=== PATIENT | female | born 1945 | race Caucasian/White ===

== ENCOUNTER 2018-05-14 17:13 | Emergency (ER) | payer BC, MEDICARE ==
[~2018-05-14] VITALS: Ht 165.1 cm; Wt 70.3 kg
[2018-05-14 17:26] VITALS: BP 200/111
[2018-05-14] MEDS: cloNIDine HCL 0.1 MG TAB PO ONE (17:31)
[2018-05-14] MEDS: CLINDAMYCIN 600 MG/4 ML VL IM ONE (20:39)
[2018-05-14] MEDS: KETOROLAC TROMETH 60MG/2ML VIAL IM ONE (20:39)
== END 2018-05-14 20:09 | disposition home or self-care (01) ==
LOC: ER 17:16
DX: K04.7 Periapical abscess without sinus (principal); J44.9 Chronic obstructive pulmonary disease, unspecified; E11.9 Type 2 diabetes mellitus without complications; I10 Essential (primary) hypertension; F17.210 Nicotine dependence, cigarettes, uncomplicated; I25.2 Old myocardial infarction; Z90.49 Acquired absence of other specified parts of digestive tract
CPT/HCPCS: 96372; 99283; J1885

== ENCOUNTER 2018-05-15 02:59 | Emergency (ER) | payer MEDICARE ==
[~2018-05-15] VITALS: Ht 165.1 cm; Wt 102.1 kg
[2018-05-15] MEDS: ACETAMINOPHEN 325 MG TAB PO ONE (03:55)
[2018-05-15 04:34] LABS: Hematocrit 50.2 % (36.0-46.0); Hemoglobin 17.3 g/dL (12.2-16.2); Mean Corpuscular Hemoglobin 33.9 pg (28.0-32.0); Mean Corpuscular Hgb Conc. 34.4 g/dL (32.0-36.0); Mean Corpuscular Volume 98.7 fL (80.0-100.0); Platelet Count (auto) 144 10^3/uL (140-450); Red Blood Cells 5.09 10^6/uL (4.0-5.20); Red Cell Distribution Width 13.2 % (11.8-14.3); White Blood Cell 10.5 10^3/uL (4.4-10.8)
[2018-05-15 04:48] LABS: Basophils % (manual) 0 (0.0-2.0); Blast Cells 0; Eosinophils % (manual) 0 (0-7); Metamyelocytes % 0; Myelocytes % 0; Promyelocytes % 0; Reactive Lymphocytes 0
[2018-05-15 04:49] LABS: Albumin 3.1 g/dL (3.4-5.0); Anion Gap 12 (5-15); Blood Urea Nitrogen 33 mg/dL (7-18); Calcium 8.7 mg/dL (8.5-10.1); Carbon Dioxide 18 mmol/L (21-32); Chloride 105 mmol/L (98-107); Magnesium 2.5 mg/dL (1.6-2.6); Potassium 4.2 mmol/L (3.5-5.1); Sodium 135 mmol/L (136-145)
[2018-05-15 04:51] LABS: GFR African American 44 mL/min; GFR Non-African American 37 mL/min; Glucose 440 mg/dL (74-106)
[2018-05-15 04:52] LABS: BUN/Creatinine Ratio 22.1
[2018-05-15 04:56] LABS: Alanine Aminotransferase 59 U/L (13-56); Alkaline Phosphatase 125 U/L (45-117); Aspartate Aminotransferase 43 U/L (15-37); Bilirubin, Total 0.9 mg/dL (0.2-1.0); Total Protein 7.9 g/dL (6.4-8.2)
[2018-05-15] MEDS: SODIUM CHLORIDE 0.9% 1,000 ML IV ONE ×2 (05:14→06:46)
[2018-05-15] MEDS: InsuLIN REG 1unit/0.01ml Soln (100units/ml) IV ONE (05:15)
[2018-05-15 06:42] LABS: Band Neutrophils % (manual) 19
[2018-05-15 06:44] LABS: Lymphocytes % (manual) 7 (10.0-50.0); Monocytes % (manual) 1 (0-12)
[2018-05-15 06:45] VITALS: BP 118/60
== END 2018-05-15 06:47 | disposition home or self-care (01) ==
LOC: EDBD 02:59 → ER 03:03
DX: E11.65 Type 2 diabetes mellitus with hyperglycemia (principal); J44.9 Chronic obstructive pulmonary disease, unspecified; I10 Essential (primary) hypertension; I25.2 Old myocardial infarction; Z90.49 Acquired absence of other specified parts of digestive tract; Z88.0 Allergy status to penicillin; Z88.5 Allergy status to narcotic agent
CPT/HCPCS: 36415; 80053; 82962; 83735; 84484; 85007; 85027; 87040; 93005; 96361; 96374; 99284; J1815; J7030

== ENCOUNTER 2019-09-19 03:21 | Emergency (ER) | payer MEDICARE, OTHER ==
[~2019-09-19] VITALS: Ht 167.6 cm; Wt 70.3 kg
[2019-09-19 04:32] LABS: Basophils # (auto) 0.1 10 ^3/uL (0-0.2); Basophils % (auto) 0.5 % (0.0-2.0); Eosinophils # (auto) 0.3 10 ^3/uL (0-0.8); Eosinophils % (auto) 2.5 % (0.0-7.0); Hematocrit 48.2 % (36.0-46.0); Hemoglobin 16.2 g/dL (12.2-16.2); Lymphocytes # (auto) 2.4 10 ^3/uL (0.4-5.4); Lymphocytes % (auto) 17.1 % (10.0-50.0); Mean Corpuscular Hemoglobin 33.8 pg (28.0-32.0); Mean Corpuscular Hgb Conc. 33.6 g/dL (32.0-36.0); Mean Corpuscular Volume 100.6 fL (80.0-100.0); Monocytes # (auto) 0.8 10 ^3/uL (0-1.3); Monocytes % (auto) 5.7 % (0.0-12.0); Neutrophils # (auto) 10.2 10 ^3/uL (1.6-8.6); Neutrophils % (auto) 74.2 % (37.0-80.0); Nucleated Red Blood Cells % 0.1 %; Platelet Count (auto) 209 10^3/uL (140-450); Red Blood Cells 4.79 10^6/uL (4.0-5.20); Red Cell Distribution Width 13.5 % (11.8-14.3); White Blood Cell 13.8 10^3/uL (4.4-10.8)
[2019-09-19 04:42] LABS: INR 1.13 (0.9-1.15); Partial Thromboplastin Time 25.5 sec (23.64-32.05)
[2019-09-19 04:44] LABS: Alanine Aminotransferase 43 U/L (13-56); Albumin 2.9 g/dL (3.4-5.0); Anion Gap 10 (5-15); Aspartate Aminotransferase 38 U/L (15-37); BUN/Creatinine Ratio 25.7; Blood Urea Nitrogen 38 mg/dL (7-18); Calcium 8.4 mg/dL (8.5-10.1); Carbon Dioxide 22 mmol/L (21-32); Chloride 104 mmol/L (98-107); GFR African American 45 mL/min; GFR Non-African American 37 mL/min; Glucose 210 mg/dL (74-106); Potassium 4.2 mmol/L (3.5-5.1); Sodium 136 mmol/L (136-145)
[2019-09-19 04:49] LABS: Alkaline Phosphatase 84 U/L (45-117); Bilirubin, Total 0.5 mg/dL (0.2-1.0); Total Protein 7.5 g/dL (6.4-8.2)
[2019-09-19 06:00] VITALS: BP 117/67
[2019-09-19 08:25] LABS: Urine Bacteria NONE SEEN /hpf (None Seen); Urine Blood Negative /uL (Negative); Urine Hyaline Cast FEW /lpf (0 - 2); Urine WBC 28 /hpf (0 - 5)
[2019-09-19] MEDS ORDERED: cefTRIAXone 1GM/50ML D5W 50 ML IV ONE ×2 (12:15→12:30)
[2019-09-19] MEDS ORDERED: AZITHROMYCIN 500MG/ 250ML 250 ML IV ONE (12:30)
== END 2019-09-19 15:37 | disposition home or self-care (01) ==
LOC: EDBD 03:21 → ER 03:21
DX: E11.21 Type 2 diabetes mellitus with diabetic nephropathy (principal); E44.0 Moderate protein-calorie malnutrition; D75.89 Other specified diseases of blood and blood-forming organs; N39.0 Urinary tract infection, site not specified; J44.9 Chronic obstructive pulmonary disease, unspecified; M10.9 Gout, unspecified; E78.5 Hyperlipidemia, unspecified; I10 Essential (primary) hypertension; I25.2 Old myocardial infarction; F17.210 Nicotine dependence, cigarettes, uncomplicated; Z20.828 Contact with and (suspected) exposure to other viral communicable diseases
CPT/HCPCS: 36415; 71045; 80053; 81001; 82728; 83605; 83880; 84484; 85025; 85610; 85730; 87040; 87070; 87635; 87804; 87880; 93005; 96365; 96366; 96367; 99001; 99284; J0456; J0696

== ENCOUNTER 2021-06-22 13:36 | Inpatient (IN) | payer BC, OTHER ==
[~2021-06-22] VITALS: Ht 165.1 cm; Wt 57.5 kg
[2021-06-22] MEDS ORDERED: HYDROmorphone HCL 2 MG/ML VL IV ONE (15:30)
[2021-06-22] MEDS ORDERED: SODIUM CHLORIDE 0.9% 1,000 ML IV ONE (15:30)
[2021-06-22] MEDS ORDERED: ONDANSETRON ODT 4 MG TAB PO ONE (15:30)
[2021-06-22 16:36] LABS: Basophils # (auto) 0 10 ^3/uL (0-0.2); Basophils % (auto) 0.4 % (0.0-2.0); Eosinophils # (auto) 0 10 ^3/uL (0-0.8); Hematocrit 43.3 % (36.0-46.0); Hemoglobin 14.8 g/dL (12.2-16.2); Lymphocytes # (auto) 0.7 10 ^3/uL (0.4-5.4); Lymphocytes % (auto) 7.2 % (10.0-50.0); Mean Corpuscular Hemoglobin 32.4 pg (28.0-32.0); Mean Corpuscular Hgb Conc. 34.2 g/dL (32.0-36.0); Mean Corpuscular Volume 94.6 fL (80.0-100.0); Monocytes # (auto) 0.5 10 ^3/uL (0-1.3); Monocytes % (auto) 5.3 % (0.0-12.0); Neutrophils # (auto) 8.8 10 ^3/uL (1.6-8.6); Neutrophils % (auto) 87.1 % (37.0-80.0); Nucleated Red Blood Cells % 0.1 %; Red Blood Cells 4.57 10^6/uL (4.0-5.20); Red Cell Distribution Width 13.5 % (11.8-14.3); White Blood Cell 10.1 10^3/uL (4.4-10.8)
[2021-06-22 16:53] LABS: Albumin 2.7 g/dL (3.4-5.0); Calcium 8.2 mg/dL (8.5-10.1); Magnesium 2.1 mg/dL (1.6-2.6); Potassium 3.7 mmol/L (3.5-5.1)
[2021-06-22 17:00] LABS: BUN/Creatinine Ratio 16.2; Bilirubin, Total 0.5 mg/dL (0.2-1.0); Total Protein 7.4 g/dL (6.4-8.2)
[2021-06-22] MEDS ORDERED: ACETAMINOPHEN 500 MG TAB PO PRN (20:45)
[2021-06-22] MEDS ORDERED: DOCUSATE SOD 100 MG CAP PO PRN (20:45)
[2021-06-22] MEDS ORDERED: DEXTROSE (50%) 50ML SYRG IV PRN (20:45)
[2021-06-22] MEDS ORDERED: HYDROmorphone HCL 2 MG/ML VL IV PRN (20:45)
[2021-06-22] MEDS ORDERED: ONDANSETRON HCL 4 MG/2 ML VIAL IV PRN (20:45)
[2021-06-22] MEDS ORDERED: NITROGLYCERIN 0.4 MG SL TAB SL PRN (22:00)
[2021-06-22] MEDS ORDERED: MORPHINE SULFATE INJECTION 2 MG/ML SYRG IV PRN (22:00)
[2021-06-22] MEDS: BUDESONIDE (INHALATION) 180 MCG IH IN SCH (22:24)
[2021-06-22] MEDS: ALBUTEROL SULF HFA 90MCG INH 200DOSE IN PRN (22:24)
[2021-06-22 22:52] LABS: Magnesium 2.2 mg/dL (1.6-2.6)
[2021-06-22] MEDS: FAMOTIDINE (10MG/ML) 2ML VL IV SCH (23:20)
[2021-06-22] MEDS: ATORVASTATIN 20 MG TAB PO SCH (23:30)
[2021-06-22] MEDS: DOXYCYCLINE 100MG/250ML 250 ML IV SCH (23:30)
[2021-06-22] MEDS: HEPARIN SODIUM (PORCINE) 5000 UNITS/ML 1ML VIAL SC SCH (23:30)
[2021-06-23] MEDS: SODIUM CHLORIDE 0.9% 1,000 ML IV SCH ×2 (03:50→14:31)
[2021-06-23] MEDS ORDERED: GABA300C10 PO (04:13)
[2021-06-23] MEDS ORDERED: LISI-716 PO (04:13)
[2021-06-23] MEDS ORDERED: OMEP-335 PO (04:13)
[2021-06-23] MEDS ORDERED: GLIP5TAB12 PO (04:13)
[2021-06-23] MEDS ORDERED: METF-372 PO (04:13)
[2021-06-23] MEDS ORDERED: DULA0.5I SC (04:13)
[2021-06-23] MEDS ORDERED: ATOR40TA52 PO (04:13)
[2021-06-23] MEDS ORDERED: HYDR25TA4 PO (04:13)
[2021-06-23] MEDS: hydrALAZINE HCL 20 MG/ML VL IV PRN (04:57)
[2021-06-23 05:00] VITALS: BP 150/69
[2021-06-23] MEDS: InsuLIN REG 1unit/0.01ml Soln (100units/ml) SC SCH ×5 (06:00→22:58)
[2021-06-23] MEDS: ACCU-CHEK COMFORT CURVE STRIP VI SCH ×5 (06:34→22:59)
[2021-06-23] MEDS: BUDESONIDE (INHALATION) 180 MCG IH IN SCH ×2 (08:32→21:00)
[2021-06-23] MEDS: ALBUTEROL SULF HFA 90MCG INH 200DOSE IN PRN (08:32)
[2021-06-23 09:00] VITALS: BP 147/63
[2021-06-23] MEDS: DOXYCYCLINE 100MG/250ML 250 ML IV SCH ×2 (09:48→22:19)
[2021-06-23] MEDS: FAMOTIDINE (10MG/ML) 2ML VL IV SCH ×2 (09:51→22:19)
[2021-06-23] MEDS: DexAMETHasone SOD PHOS 10MG/1ML VIAL INJ IV SCH (09:51)
[2021-06-23] MEDS: CHOLECALCIFEROL (VITD3) 2,000 UNIT CAP/TAB PO SCH (09:51)
[2021-06-23] MEDS: ASCORBIC ACID 1,000 MG TAB PO SCH (09:52)
[2021-06-23] MEDS: ZINC SULFATE 220mg CAP or TAB PO SCH (09:52)
[2021-06-23] MEDS: MULTIPLE VITAMIN TAB PO SCH (09:52)
[2021-06-23] MEDS: ASPirin 81 mg TAB PO SCH (09:52)
[2021-06-23] MEDS: HEPARIN SODIUM (PORCINE) 5000 UNITS/ML 1ML VIAL SC SCH ×2 (09:58→22:20)
[2021-06-23] MEDS ORDERED: LISINOPRIL 10 MG TAB PO SCH (10:00)
[2021-06-23 11:47] LABS: Basophils # (auto) 0 10 ^3/uL (0-0.2); Basophils % (auto) 0.2 % (0.0-2.0); Eosinophils # (auto) 0 10 ^3/uL (0-0.8); Hematocrit 39.1 % (36.0-46.0); Hemoglobin 13.4 g/dL (12.2-16.2); Lymphocytes # (auto) 0.4 10 ^3/uL (0.4-5.4); Lymphocytes % (auto) 5.5 % (10.0-50.0); Mean Corpuscular Hemoglobin 32.4 pg (28.0-32.0); Mean Corpuscular Hgb Conc. 34.2 g/dL (32.0-36.0); Mean Corpuscular Volume 94.5 fL (80.0-100.0); Monocytes # (auto) 0.3 10 ^3/uL (0-1.3); Monocytes % (auto) 3.7 % (0.0-12.0); Neutrophils # (auto) 7.2 10 ^3/uL (1.6-8.6); Neutrophils % (auto) 90.6 % (37.0-80.0); Nucleated Red Blood Cells % 0.1 %; Red Blood Cells 4.14 10^6/uL (4.0-5.20); Red Cell Distribution Width 13.4 % (11.8-14.3)
[2021-06-23 11:56] LABS: Potassium 3.9 mmol/L (3.5-5.1)
[2021-06-23 12:21] LABS: Albumin 2.1 g/dL (3.4-5.0); Bilirubin, Total 0.4 mg/dL (0.2-1.0); Calcium 7.6 mg/dL (8.5-10.1); Total Protein 6.5 g/dL (6.4-8.2)
[2021-06-23 13:00] VITALS: BP 105/34
[2021-06-23 17:00] VITALS: BP 112/64
[2021-06-23] MEDS: ACETAMINOPHEN 325 MG TAB PO PRN (17:48)
[2021-06-23] MEDS: guaiFENesin-DM 100/10mg/5ml SYR PO PRN (17:49)
[2021-06-23 22:00] VITALS: BP 137/54
[2021-06-23] MEDS: ATORVASTATIN 20 MG TAB PO SCH (22:19)
[2021-06-24] MEDS: ALBUTEROL SULF HFA 90MCG INH 200DOSE IN PRN ×2 (00:46→11:59)
[2021-06-24 05:00] VITALS: BP 128/61
[2021-06-24] MEDS: InsuLIN REG 1unit/0.01ml Soln (100units/ml) SC SCH ×4 (05:45→23:07)
[2021-06-24] MEDS: ACCU-CHEK COMFORT CURVE STRIP VI SCH ×4 (05:45→23:07)
[2021-06-24] MEDS: SODIUM CHLORIDE 0.9% 1,000 ML IV SCH (06:06)
[2021-06-24] MEDS: BUDESONIDE (INHALATION) 180 MCG IH IN SCH ×2 (08:24→22:00)
[2021-06-24 08:42] VITALS: BP 152/64
[2021-06-24] MEDS: DOXYCYCLINE 100MG/250ML 250 ML IV SCH ×2 (09:29→22:17)
[2021-06-24] MEDS: ASPirin 81 mg TAB PO SCH (09:29)
[2021-06-24] MEDS: DexAMETHasone SOD PHOS 10MG/1ML VIAL INJ IV SCH (09:29)
[2021-06-24] MEDS: ZINC SULFATE 220mg CAP or TAB PO SCH (09:29)
[2021-06-24] MEDS: FAMOTIDINE (10MG/ML) 2ML VL IV SCH ×2 (09:29→22:17)
[2021-06-24] MEDS: CHOLECALCIFEROL (VITD3) 2,000 UNIT CAP/TAB PO SCH (09:30)
[2021-06-24] MEDS: MULTIPLE VITAMIN TAB PO SCH (09:30)
[2021-06-24] MEDS: HEPARIN SODIUM (PORCINE) 5000 UNITS/ML 1ML VIAL SC SCH ×2 (09:30→22:18)
[2021-06-24] MEDS: ASCORBIC ACID 1,000 MG TAB PO SCH (09:30)
[2021-06-24] MEDS: hydrALAZINE HCL 20 MG/ML VL IV PRN ×2 (09:31→17:43)
[2021-06-24] MEDS: guaiFENesin-DM 100/10mg/5ml SYR PO PRN ×2 (10:13→23:00)
[2021-06-24 12:44] LABS: Basophils # (auto) 0 10 ^3/uL (0-0.2); Basophils % (auto) 0.1 % (0.0-2.0); Eosinophils # (auto) 0 10 ^3/uL (0-0.8); Hematocrit 42.6 % (36.0-46.0); Hemoglobin 13.9 g/dL (12.2-16.2); Lymphocytes # (auto) 0.6 10 ^3/uL (0.4-5.4); Mean Corpuscular Hemoglobin 31.4 pg (28.0-32.0); Mean Corpuscular Hgb Conc. 32.7 g/dL (32.0-36.0); Monocytes # (auto) 0.5 10 ^3/uL (0-1.3); Monocytes % (auto) 2.7 % (0.0-12.0); Neutrophils # (auto) 17.2 10 ^3/uL (1.6-8.6); Neutrophils % (auto) 94.2 % (37.0-80.0); Nucleated Red Blood Cells % 0.1 %; Red Blood Cells 4.44 10^6/uL (4.0-5.20); Red Cell Distribution Width 13.5 % (11.8-14.3); White Blood Cell 18.2 10^3/uL (4.4-10.8)
[2021-06-24 12:59] LABS: Potassium 4.3 mmol/L (3.5-5.1)
[2021-06-24 13:00] VITALS: BP 144/61
[2021-06-24 13:11] LABS: Albumin 2.1 g/dL (3.4-5.0); BUN/Creatinine Ratio 29.1; Bilirubin, Total 0.4 mg/dL (0.2-1.0); CRP High Sensitivity 5.99 mg/dL (< 0.3); Total Protein 6.7 g/dL (6.4-8.2)
[2021-06-24 17:00] VITALS: BP 155/68
[2021-06-24 22:00] VITALS: BP 141/60
[2021-06-24] MEDS: ATORVASTATIN 20 MG TAB PO SCH (22:18)
[2021-06-25 05:00] VITALS: BP 174/76
[2021-06-25] MEDS: ACCU-CHEK COMFORT CURVE STRIP VI SCH ×3 (06:12→17:11)
[2021-06-25] MEDS: InsuLIN REG 1unit/0.01ml Soln (100units/ml) SC SCH ×4 (06:13→23:33)
[2021-06-25] MEDS: hydrALAZINE HCL 20 MG/ML VL IV PRN (06:14)
[2021-06-25] MEDS: ASPirin 81 mg TAB PO SCH (08:47)
[2021-06-25] MEDS: DexAMETHasone SOD PHOS 10MG/1ML VIAL INJ IV SCH (08:47)
[2021-06-25] MEDS: ZINC SULFATE 220mg CAP or TAB PO SCH (08:47)
[2021-06-25] MEDS: DOXYCYCLINE 100MG/250ML 250 ML IV SCH ×2 (08:47→21:53)
[2021-06-25] MEDS: FAMOTIDINE (10MG/ML) 2ML VL IV SCH ×2 (08:47→21:53)
[2021-06-25] MEDS: MULTIPLE VITAMIN TAB PO SCH (08:48)
[2021-06-25] MEDS: ASCORBIC ACID 1,000 MG TAB PO SCH (08:48)
[2021-06-25] MEDS: CHOLECALCIFEROL (VITD3) 2,000 UNIT CAP/TAB PO SCH (08:48)
[2021-06-25] MEDS: HEPARIN SODIUM (PORCINE) 5000 UNITS/ML 1ML VIAL SC SCH ×2 (08:48→21:53)
[2021-06-25 09:00] VITALS: BP 169/72
[2021-06-25] MEDS: BUDESONIDE (INHALATION) 180 MCG IH IN SCH ×2 (09:28→21:57)
[2021-06-25 12:55] VITALS: BP 166/58
[2021-06-25] MEDS: amLODIPine BESYLATE 5 MG TAB PO SCH (13:25)
[2021-06-25 14:35] VITALS: BP 140/65
[2021-06-25 14:56] LABS: Basophils # (auto) 0 10 ^3/uL (0-0.2); Basophils % (auto) 0.1 % (0.0-2.0); Eosinophils # (auto) 0 10 ^3/uL (0-0.8); Hemoglobin 14.6 g/dL (12.2-16.2); Lymphocytes # (auto) 0.3 10 ^3/uL (0.4-5.4); Lymphocytes % (auto) 2.1 % (10.0-50.0); Mean Corpuscular Hemoglobin 31.9 pg (28.0-32.0); Mean Corpuscular Volume 93.8 fL (80.0-100.0); Monocytes # (auto) 0.5 10 ^3/uL (0-1.3); Monocytes % (auto) 3.4 % (0.0-12.0); Neutrophils # (auto) 13.3 10 ^3/uL (1.6-8.6); Neutrophils % (auto) 94.4 % (37.0-80.0); Red Blood Cells 4.58 10^6/uL (4.0-5.20); Red Cell Distribution Width 13.4 % (11.8-14.3); White Blood Cell 14.1 10^3/uL (4.4-10.8)
[2021-06-25 15:06] LABS: Albumin 2.1 g/dL (3.4-5.0); Calcium 8.3 mg/dL (8.5-10.1); Potassium 4.7 mmol/L (3.5-5.1)
[2021-06-25 15:10] LABS: BUN/Creatinine Ratio 29.5; Bilirubin, Total 0.4 mg/dL (0.2-1.0); Total Protein 6.8 g/dL (6.4-8.2)
[2021-06-25] MEDS: ALBUTEROL SULF HFA 90MCG INH 200DOSE IN PRN (15:18)
[2021-06-25 16:50] VITALS: BP 140/65
[2021-06-25] MEDS: guaiFENesin-DM 100/10mg/5ml SYR PO PRN (21:04)
[2021-06-25] MEDS: ATORVASTATIN 20 MG TAB PO SCH (21:53)
[2021-06-25 22:00] VITALS: BP 144/85
[2021-06-26 05:00] VITALS: BP 155/73
[2021-06-26] MEDS: ACCU-CHEK COMFORT CURVE STRIP VI SCH ×4 (06:00→18:00)
[2021-06-26] MEDS: InsuLIN REG 1unit/0.01ml Soln (100units/ml) SC SCH ×3 (06:00→17:41)
[2021-06-26 08:27] LABS: Basophils # (auto) 0 10 ^3/uL (0-0.2); Basophils % (auto) 0.1 % (0.0-2.0); Eosinophils # (auto) 0 10 ^3/uL (0-0.8); Hematocrit 44.9 % (36.0-46.0); Hemoglobin 15.1 g/dL (12.2-16.2); Lymphocytes # (auto) 0.5 10 ^3/uL (0.4-5.4); Lymphocytes % (auto) 4.4 % (10.0-50.0); Mean Corpuscular Hgb Conc. 33.6 g/dL (32.0-36.0); Mean Corpuscular Volume 95.2 fL (80.0-100.0); Monocytes # (auto) 0.6 10 ^3/uL (0-1.3); Neutrophils # (auto) 11.3 10 ^3/uL (1.6-8.6); Neutrophils % (auto) 90.5 % (37.0-80.0); Nucleated Red Blood Cells % 0.1 %; Red Blood Cells 4.72 10^6/uL (4.0-5.20); Red Cell Distribution Width 13.7 % (11.8-14.3); White Blood Cell 12.5 10^3/uL (4.4-10.8)
[2021-06-26 08:30] VITALS: BP 161/82
[2021-06-26 08:31] LABS: Potassium 4.5 mmol/L (3.5-5.1)
[2021-06-26 09:13] LABS: Albumin 2.2 g/dL (3.4-5.0); BUN/Creatinine Ratio 33.6
[2021-06-26 09:15] LABS: Bilirubin, Total 0.6 mg/dL (0.2-1.0); Magnesium 2.1 mg/dL (1.6-2.6); Total Protein 7.2 g/dL (6.4-8.2)
[2021-06-26] MEDS: DexAMETHasone SOD PHOS 10MG/1ML VIAL INJ IV SCH (09:33)
[2021-06-26] MEDS: DOXYCYCLINE 100MG/250ML 250 ML IV SCH ×2 (09:34→21:20)
[2021-06-26] MEDS: FAMOTIDINE (10MG/ML) 2ML VL IV SCH ×2 (09:34→21:20)
[2021-06-26] MEDS: ASPirin 81 mg TAB PO SCH (09:34)
[2021-06-26] MEDS: ZINC SULFATE 220mg CAP or TAB PO SCH (09:35)
[2021-06-26] MEDS: MULTIPLE VITAMIN TAB PO SCH (09:35)
[2021-06-26] MEDS: ASCORBIC ACID 1,000 MG TAB PO SCH (09:36)
[2021-06-26] MEDS: amLODIPine BESYLATE 5 MG TAB PO SCH (09:36)
[2021-06-26] MEDS: HEPARIN SODIUM (PORCINE) 5000 UNITS/ML 1ML VIAL SC SCH ×2 (09:37→21:19)
[2021-06-26] MEDS: CHOLECALCIFEROL (VITD3) 2,000 UNIT CAP/TAB PO SCH (09:37)
[2021-06-26] MEDS: BUDESONIDE (INHALATION) 180 MCG IH IN SCH ×2 (10:00→19:33)
[2021-06-26] MEDS: ALBUTEROL SULF HFA 90MCG INH 200DOSE IN PRN ×2 (11:00→21:06)
[2021-06-26] MEDS ORDERED: REMDESIVIR PER PHARMACY 0 ML IV SCH (11:45)
[2021-06-26 11:49] LABS: Hepatitis B Surface Antibody Negative (Negative)
[2021-06-26 12:30] VITALS: BP 150/86
[2021-06-26 13:02] LABS: Hepatitis A Total Antibody Negative (Negative)
[2021-06-26 14:21] LABS: Hepatitis C Antibody Negative (Negative)
[2021-06-26] MEDS ORDERED: REMDESIVIR 200 MG in NS 210ml LOADING DOSE ADULT IV ONE (16:00)
[2021-06-26 17:29] VITALS: BP 122/69
[2021-06-26] MEDS: ATORVASTATIN 20 MG TAB PO SCH (21:19)
[2021-06-26 22:00] VITALS: BP 138/67
[2021-06-27] MEDS: ACCU-CHEK COMFORT CURVE STRIP VI SCH ×5 (00:04→23:40)
[2021-06-27] MEDS: InsuLIN REG 1unit/0.01ml Soln (100units/ml) SC SCH ×5 (00:06→23:40)
[2021-06-27 05:10] VITALS: BP 138/72
[2021-06-27] MEDS: BUDESONIDE (INHALATION) 180 MCG IH IN SCH ×2 (05:54→19:28)
[2021-06-27] MEDS: ALBUTEROL SULF HFA 90MCG INH 200DOSE IN PRN ×2 (05:54→19:28)
[2021-06-27 07:39] LABS: Potassium 4.6 mmol/L (3.5-5.1)
[2021-06-27 08:05] LABS: Albumin 2.1 g/dL (3.4-5.0); BUN/Creatinine Ratio 39.8; Bilirubin, Total 0.5 mg/dL (0.2-1.0); Calcium 8.4 mg/dL (8.5-10.1); Total Protein 6.7 g/dL (6.4-8.2)
[2021-06-27 09:08] VITALS: BP 180/82
[2021-06-27] MEDS: DexAMETHasone SOD PHOS 10MG/1ML VIAL INJ IV SCH (09:12)
[2021-06-27] MEDS: DOXYCYCLINE 100MG/250ML 250 ML IV SCH (09:12)
[2021-06-27] MEDS: ASPirin 81 mg TAB PO SCH (09:12)
[2021-06-27] MEDS: FAMOTIDINE (10MG/ML) 2ML VL IV SCH ×2 (09:12→21:42)
[2021-06-27] MEDS: MULTIPLE VITAMIN TAB PO SCH (09:13)
[2021-06-27] MEDS: ASCORBIC ACID 1,000 MG TAB PO SCH (09:13)
[2021-06-27] MEDS: ZINC SULFATE 220mg CAP or TAB PO SCH (09:13)
[2021-06-27] MEDS: CHOLECALCIFEROL (VITD3) 2,000 UNIT CAP/TAB PO SCH (09:14)
[2021-06-27] MEDS: HEPARIN SODIUM (PORCINE) 5000 UNITS/ML 1ML VIAL SC SCH ×2 (09:14→21:43)
[2021-06-27] MEDS ORDERED: hydrALAZINE HCL 20 MG/ML VL ONE (09:22)
[2021-06-27] MEDS: hydrALAZINE HCL 20 MG/ML VL IV PRN (09:24)
[2021-06-27] MEDS: amLODIPine BESYLATE 5 MG TAB PO SCH (09:25)
[2021-06-27 12:31] VITALS: BP 155/60
[2021-06-27] MEDS: REMDESIVIR 100mg 100 MG in SODIUM CHL 0.9% 230 ML IV SCH (16:01)
[2021-06-27 16:35] VITALS: BP 163/70
[2021-06-27] MEDS: ATORVASTATIN 20 MG TAB PO SCH (21:42)
[2021-06-27 22:00] VITALS: BP 151/71
[2021-06-28] VITALS (7 sets, daily range): BP systolic 146–172; BP diastolic 72–89
[2021-06-28] MEDS: InsuLIN REG 1unit/0.01ml Soln (100units/ml) SC SCH ×4 (05:27→23:56)
[2021-06-28] MEDS: ACCU-CHEK COMFORT CURVE STRIP VI SCH ×3 (05:27→18:09)
[2021-06-28 06:39] LABS: Potassium 4.3 mmol/L (3.5-5.1)
[2021-06-28 06:48] LABS: Albumin 2.3 g/dL (3.4-5.0); BUN/Creatinine Ratio 42.3; Calcium 8.8 mg/dL (8.5-10.1)
[2021-06-28 06:51] LABS: Bilirubin, Total 0.6 mg/dL (0.2-1.0); Total Protein 6.6 g/dL (6.4-8.2)
[2021-06-28] MEDS: ALBUTEROL SULF HFA 90MCG INH 200DOSE IN PRN ×2 (07:19→22:10)
[2021-06-28] MEDS: BUDESONIDE (INHALATION) 180 MCG IH IN SCH ×2 (07:19→22:10)
[2021-06-28] MEDS: ASCORBIC ACID 1,000 MG TAB PO SCH (10:20)
[2021-06-28] MEDS: ZINC SULFATE 220mg CAP or TAB PO SCH (10:20)
[2021-06-28] MEDS: DexAMETHasone SOD PHOS 10MG/1ML VIAL INJ IV SCH (10:20)
[2021-06-28] MEDS: MULTIPLE VITAMIN TAB PO SCH (10:20)
[2021-06-28] MEDS: FAMOTIDINE (10MG/ML) 2ML VL IV SCH ×2 (10:20→23:15)
[2021-06-28] MEDS: amLODIPine BESYLATE 5 MG TAB PO SCH (10:21)
[2021-06-28] MEDS: CHOLECALCIFEROL (VITD3) 2,000 UNIT CAP/TAB PO SCH (10:21)
[2021-06-28] MEDS: ASPirin 81 mg TAB PO SCH (10:27)
[2021-06-28] MEDS: HEPARIN SODIUM (PORCINE) 5000 UNITS/ML 1ML VIAL SC SCH ×2 (10:35→23:14)
[2021-06-28] MEDS: ACETAMINOPHEN 325 MG TAB PO PRN (11:53)
[2021-06-28] MEDS: D5W 5% 1,000 ML IV SCH ×2 (11:53→23:14)
[2021-06-28] MEDS: REMDESIVIR 100mg 100 MG in SODIUM CHL 0.9% 230 ML IV SCH (15:57)
[2021-06-28] MEDS: ALPRAZolam 0.5 MG TAB PO PRN (15:58)
[2021-06-28 21:10] LABS: Urine Amorphous Crystal FEW /hpf (None Seen); Urine Bacteria FEW /hpf (None Seen); Urine Blood Negative /uL (Negative); Urine Specific Gravity 1.013 (1.001-1.035); Urine WBC 1 /hpf (0 - 5)
[2021-06-28] MEDS: ATORVASTATIN 20 MG TAB PO SCH (23:14)
[2021-06-29] MEDS: ALPRAZolam 0.5 MG TAB PO PRN
[2021-06-29 05:00] VITALS: BP 170/81
[2021-06-29] MEDS: ACCU-CHEK COMFORT CURVE STRIP VI SCH ×5 (05:26→23:27)
[2021-06-29] MEDS: InsuLIN REG 1unit/0.01ml Soln (100units/ml) SC SCH ×4 (05:27→23:25)
[2021-06-29] MEDS: BUDESONIDE (INHALATION) 180 MCG IH IN SCH ×2 (05:56→19:41)
[2021-06-29] MEDS: ALBUTEROL SULF HFA 90MCG INH 200DOSE IN PRN ×2 (05:56→21:19)
[2021-06-29 07:47] LABS: Albumin 2.4 g/dL (3.4-5.0); Bilirubin, Total 0.7 mg/dL (0.2-1.0); Calcium 8.9 mg/dL (8.5-10.1); Total Protein 7.1 g/dL (6.4-8.2)
[2021-06-29 08:00] VITALS: BP 170/83
[2021-06-29 08:10] VITALS: BP 177/77
[2021-06-29] MEDS: D5W 5% 1,000 ML IV SCH ×2 (09:42→21:46)
[2021-06-29] MEDS: DexAMETHasone SOD PHOS 10MG/1ML VIAL INJ IV SCH (09:43)
[2021-06-29] MEDS: ZINC SULFATE 220mg CAP or TAB PO SCH (09:44)
[2021-06-29] MEDS: ASPirin 81 mg TAB PO SCH (09:44)
[2021-06-29] MEDS: FAMOTIDINE (10MG/ML) 2ML VL IV SCH ×2 (09:44→21:21)
[2021-06-29] MEDS: amLODIPine BESYLATE 5 MG TAB PO SCH (09:45)
[2021-06-29] MEDS: MULTIPLE VITAMIN TAB PO SCH (09:45)
[2021-06-29] MEDS: CHOLECALCIFEROL (VITD3) 2,000 UNIT CAP/TAB PO SCH (09:46)
[2021-06-29] MEDS: ASCORBIC ACID 1,000 MG TAB PO SCH (09:46)
[2021-06-29] MEDS: HEPARIN SODIUM (PORCINE) 5000 UNITS/ML 1ML VIAL SC SCH ×2 (09:48→21:45)
[2021-06-29] MEDS: hydrALAZINE HCL 20 MG/ML VL IV PRN (11:13)
[2021-06-29 13:20] VITALS: BP 177/80
[2021-06-29] MEDS: REMDESIVIR 100mg 100 MG in SODIUM CHL 0.9% 230 ML IV SCH (15:35)
[2021-06-29] MEDS: cefTRIAXone 1GM/50ML D5W 50 ML IV SCH (15:49)
[2021-06-29] MEDS: METOPROLOL TARTRATE 25 MG TAB PO SCH ×2 (15:52→21:44)
[2021-06-29] MEDS: ATORVASTATIN 20 MG TAB PO SCH (21:22)
[2021-06-29 22:00] VITALS: BP 153/73
[2021-06-30 05:00] VITALS: BP 148/80
[2021-06-30] MEDS: D5W 5% 1,000 ML IV SCH ×2 (05:45→13:20)
[2021-06-30] MEDS: InsuLIN REG 1unit/0.01ml Soln (100units/ml) SC SCH ×4 (05:53→23:21)
[2021-06-30] MEDS: ACCU-CHEK COMFORT CURVE STRIP VI SCH ×4 (05:53→23:21)
[2021-06-30] MEDS: BUDESONIDE (INHALATION) 180 MCG IH IN SCH ×2 (07:02→21:53)
[2021-06-30] MEDS: ALBUTEROL SULF HFA 90MCG INH 200DOSE IN PRN ×2 (07:02→21:53)
[2021-06-30 07:26] LABS: Alanine Aminotransferase 73 U/L (13-56); Albumin 2.2 g/dL (3.4-5.0); Anion Gap 7 (5-15); Aspartate Aminotransferase 75 U/L (15-37); BUN/Creatinine Ratio 40.5; Blood Urea Nitrogen 47 mg/dL (7-18); Calcium 8.4 mg/dL (8.5-10.1); Carbon Dioxide 19 mmol/L (21-32); Chloride 125 mmol/L (98-107); GFR African American 59 mL/min; GFR Non-African American 49 mL/min; Glucose 171 mg/dL (74-106); Magnesium 2.6 mg/dL (1.6-2.6); Potassium 4.6 mmol/L (3.5-5.1); Sodium 151 mmol/L (136-145)
[2021-06-30 07:29] LABS: Alkaline Phosphatase 78 U/L (45-117); Bilirubin, Total 0.8 mg/dL (0.2-1.0); Total Protein 7.1 g/dL (6.4-8.2)
[2021-06-30 09:00] VITALS: BP 157/81
[2021-06-30] MEDS ORDERED: cefTRIAXone 1GM/50ML D5W 50 ML IV SCH (09:00)
[2021-06-30] MEDS: cefTRIAXone 1GM/50ML D5W 50 ML IV SCH (09:29)
[2021-06-30] MEDS: DexAMETHasone SOD PHOS 10MG/1ML VIAL INJ IV SCH (09:30)
[2021-06-30] MEDS: FAMOTIDINE (10MG/ML) 2ML VL IV SCH ×2 (09:30→21:12)
[2021-06-30] MEDS: HEPARIN SODIUM (PORCINE) 5000 UNITS/ML 1ML VIAL SC SCH ×2 (09:31→21:12)
[2021-06-30] MEDS: ASPirin 81 mg TAB PO SCH (10:29)
[2021-06-30] MEDS: ZINC SULFATE 220mg CAP or TAB PO SCH (10:29)
[2021-06-30] MEDS: METOPROLOL TARTRATE 25 MG TAB PO SCH ×2 (10:30→21:15)
[2021-06-30] MEDS: amLODIPine BESYLATE 5 MG TAB PO SCH (10:30)
[2021-06-30] MEDS: MULTIPLE VITAMIN TAB PO SCH (10:30)
[2021-06-30] MEDS: ASCORBIC ACID 1,000 MG TAB PO SCH (10:31)
[2021-06-30] MEDS: CHOLECALCIFEROL (VITD3) 2,000 UNIT CAP/TAB PO SCH (10:31)
[2021-06-30 12:08] LABS: Basophils # (auto) 0.1 10 ^3/uL (0-0.2); Basophils % (auto) 0.6 % (0.0-2.0); Eosinophils # (auto) 0 10 ^3/uL (0-0.8); Eosinophils % (auto) 0.1 % (0.0-7.0); Hematocrit 43.2 % (36.0-46.0); Hemoglobin 14.6 g/dL (12.2-16.2); Lymphocytes # (auto) 0.4 10 ^3/uL (0.4-5.4); Lymphocytes % (auto) 2.2 % (10.0-50.0); Mean Corpuscular Hemoglobin 32.4 pg (28.0-32.0); Mean Corpuscular Hgb Conc. 33.8 g/dL (32.0-36.0); Mean Corpuscular Volume 95.9 fL (80.0-100.0); Monocytes # (auto) 0.5 10 ^3/uL (0-1.3); Monocytes % (auto) 3.2 % (0.0-12.0); Neutrophils # (auto) 15.2 10 ^3/uL (1.6-8.6); Neutrophils % (auto) 93.9 % (37.0-80.0); Red Blood Cells 4.51 10^6/uL (4.0-5.20); Red Cell Distribution Width 13.7 % (11.8-14.3); White Blood Cell 16.2 10^3/uL (4.4-10.8)
[2021-06-30 13:04] VITALS: BP 139/60
[2021-06-30] MEDS: REMDESIVIR 100mg 100 MG in SODIUM CHL 0.9% 230 ML IV SCH (16:21)
[2021-06-30 17:24] VITALS: BP 149/84
[2021-06-30] MEDS: ATORVASTATIN 20 MG TAB PO SCH (21:12)
[2021-06-30 22:00] VITALS: BP 169/89
[2021-06-30] MEDS: ALPRAZolam 0.5 MG TAB PO PRN (23:14)
[2021-06-30] MEDS: hydrALAZINE HCL 20 MG/ML VL IV PRN (23:15)
[2021-07-01] MEDS: D5W 5% 1,000 ML IV SCH (03:44)
[2021-07-01 05:00] VITALS: BP 143/75
[2021-07-01] MEDS: BUDESONIDE (INHALATION) 180 MCG IH IN SCH ×2 (06:03→20:04)
[2021-07-01] MEDS: ALBUTEROL SULF HFA 90MCG INH 200DOSE IN PRN ×2 (06:04→20:04)
[2021-07-01] MEDS: ACCU-CHEK COMFORT CURVE STRIP VI SCH ×4 (06:28→23:14)
[2021-07-01] MEDS: InsuLIN REG 1unit/0.01ml Soln (100units/ml) SC SCH ×4 (06:29→23:13)
[2021-07-01 09:00] VITALS: BP 139/71
[2021-07-01] MEDS: DexAMETHasone SOD PHOS 10MG/1ML VIAL INJ IV SCH (10:55)
[2021-07-01] MEDS: FAMOTIDINE (10MG/ML) 2ML VL IV SCH ×2 (10:56→21:20)
[2021-07-01] MEDS: ASPirin 81 mg TAB PO SCH (10:57)
[2021-07-01] MEDS: ZINC SULFATE 220mg CAP or TAB PO SCH (10:57)
[2021-07-01] MEDS: amLODIPine BESYLATE 5 MG TAB PO SCH (10:59)
[2021-07-01] MEDS: MULTIPLE VITAMIN TAB PO SCH (10:59)
[2021-07-01] MEDS: METOPROLOL TARTRATE 25 MG TAB PO SCH ×2 (10:59→21:22)
[2021-07-01] MEDS: CHOLECALCIFEROL (VITD3) 2,000 UNIT CAP/TAB PO SCH (11:00)
[2021-07-01] MEDS: ASCORBIC ACID 1,000 MG TAB PO SCH (11:00)
[2021-07-01] MEDS: HEPARIN SODIUM (PORCINE) 5000 UNITS/ML 1ML VIAL SC SCH ×2 (11:02→21:26)
[2021-07-01 12:19] LABS: Calcium 8.2 mg/dL (8.5-10.1)
[2021-07-01 12:22] LABS: BUN/Creatinine Ratio 36.2
[2021-07-01 13:00] VITALS: BP 156/78
[2021-07-01] MEDS: SOD CHL 0.45% 1,000 ML IV SCH ×2 (14:42→21:22)
[2021-07-01] MEDS: hydrALAZINE HCL 20 MG/ML VL IV PRN ×2 (16:58→22:41)
[2021-07-01 17:00] VITALS: BP 177/85
[2021-07-01] MEDS: ATORVASTATIN 20 MG TAB PO SCH (21:20)
[2021-07-01 22:00] VITALS: BP 168/68
[2021-07-02 05:00] VITALS: BP 156/75
[2021-07-02] MEDS: ACCU-CHEK COMFORT CURVE STRIP VI SCH ×3 (05:30→17:42)
[2021-07-02] MEDS: InsuLIN REG 1unit/0.01ml Soln (100units/ml) SC SCH ×3 (05:30→17:45)
[2021-07-02 07:37] LABS: Hematocrit 48.2 % (36.0-46.0); Hemoglobin 15.8 g/dL (12.2-16.2); Mean Corpuscular Hemoglobin 31.6 pg (28.0-32.0); Mean Corpuscular Hgb Conc. 32.8 g/dL (32.0-36.0); Mean Corpuscular Volume 96.2 fL (80.0-100.0); Red Blood Cells 5.01 10^6/uL (4.0-5.20); Red Cell Distribution Width 14.2 % (11.8-14.3); White Blood Cell 17.8 10^3/uL (4.4-10.8)
[2021-07-02 07:44] LABS: Band Neutrophils % (manual) 0; Basophils % (manual) 0 (0.0-2.0); Blast Cells 0; Eosinophils % (manual) 0 (0-7); Metamyelocytes % 0; Myelocytes % 0; Promyelocytes % 0; Reactive Lymphocytes 0
[2021-07-02 07:56] LABS: Calcium 8.3 mg/dL (8.5-10.1); Magnesium 3.6 mg/dL (1.6-2.6); Potassium 4.8 mmol/L (3.5-5.1)
[2021-07-02 07:59] LABS: BUN/Creatinine Ratio 40.4
[2021-07-02] MEDS: FAMOTIDINE (10MG/ML) 2ML VL IV SCH ×2 (09:39→21:51)
[2021-07-02] MEDS: SOD CHL 0.45% 1,000 ML IV SCH (09:39)
[2021-07-02] MEDS: ASPirin 81 mg TAB PO SCH (09:40)
[2021-07-02] MEDS: ZINC SULFATE 220mg CAP or TAB PO SCH (09:40)
[2021-07-02] MEDS: DexAMETHasone 4 MG TAB PO SCH (09:40)
[2021-07-02] MEDS: METOPROLOL TARTRATE 25 MG TAB PO SCH ×2 (09:42→21:52)
[2021-07-02] MEDS: MULTIPLE VITAMIN TAB PO SCH (09:42)
[2021-07-02] MEDS: ASCORBIC ACID 1,000 MG TAB PO SCH (09:43)
[2021-07-02] MEDS: CHOLECALCIFEROL (VITD3) 2,000 UNIT CAP/TAB PO SCH (09:43)
[2021-07-02] MEDS: amLODIPine BESYLATE 5 MG TAB PO SCH (09:43)
[2021-07-02] MEDS: HEPARIN SODIUM (PORCINE) 5000 UNITS/ML 1ML VIAL SC SCH ×2 (09:46→22:04)
[2021-07-02] MEDS: D5W 5% 1,000 ML IV SCH ×2 (11:00→21:51)
[2021-07-02 12:42] LABS: Lymphocytes % (manual) 1 (10.0-50.0); Monocytes % (manual) 4 (0-12)
[2021-07-02 17:00] VITALS: BP 172/89
[2021-07-02] MEDS: hydrALAZINE HCL 20 MG/ML VL IV PRN (17:41)
[2021-07-02] MEDS ORDERED: Ensure HIGH Protein Chocolate 8oz Bottle PO SCH (18:00)
[2021-07-02 21:34] VITALS: BP 132/62
[2021-07-02] MEDS: BUDESONIDE (INHALATION) 180 MCG IH IN SCH (21:37)
[2021-07-02] MEDS: ATORVASTATIN 20 MG TAB PO SCH (21:51)
[2021-07-03] MEDS: ACCU-CHEK COMFORT CURVE STRIP VI SCH ×5 (00:12→23:51)
[2021-07-03] MEDS: InsuLIN REG 1unit/0.01ml Soln (100units/ml) SC SCH ×4 (00:17→17:57)
[2021-07-03 04:44] VITALS: BP 148/70
[2021-07-03] MEDS: D5W 5% 1,000 ML IV SCH (06:24)
[2021-07-03] MEDS: Glucerna Carbsteady SHAKE Vanilla 8oz PO SCH ×2 (08:00→17:55)
[2021-07-03 08:40] VITALS: BP 142/63
[2021-07-03] MEDS: FAMOTIDINE (10MG/ML) 2ML VL IV SCH ×2 (10:44→22:05)
[2021-07-03] MEDS: ZINC SULFATE 220mg CAP or TAB PO SCH (10:44)
[2021-07-03] MEDS: ASPirin 81 mg TAB PO SCH (10:44)
[2021-07-03] MEDS: SOD CHL 0.45% 1,000 ML IV SCH ×2 (10:45→22:11)
[2021-07-03] MEDS: MULTIPLE VITAMIN TAB PO SCH (10:45)
[2021-07-03] MEDS: DexAMETHasone 4 MG TAB PO SCH (10:45)
[2021-07-03] MEDS: METOPROLOL TARTRATE 25 MG TAB PO SCH ×2 (10:45→22:00)
[2021-07-03] MEDS: amLODIPine BESYLATE 5 MG TAB PO SCH (10:46)
[2021-07-03] MEDS: CHOLECALCIFEROL (VITD3) 2,000 UNIT CAP/TAB PO SCH (10:46)
[2021-07-03] MEDS: ASCORBIC ACID 1,000 MG TAB PO SCH (10:46)
[2021-07-03] MEDS: HEPARIN SODIUM (PORCINE) 5000 UNITS/ML 1ML VIAL SC SCH ×2 (10:47→22:08)
[2021-07-03 12:36] VITALS: BP 153/68
[2021-07-03 14:30] LABS: BUN/Creatinine Ratio 36.6; Calcium 8.3 mg/dL (8.5-10.1); Potassium 4.2 mmol/L (3.5-5.1)
[2021-07-03 16:36] VITALS: BP 147/69
[2021-07-03] MEDS ORDERED: PPN PER PHARMACY 0 ML IV SCH (18:15)
[2021-07-03] MEDS: ALBUTEROL SULF HFA 90MCG INH 200DOSE IN PRN (19:51)
[2021-07-03] MEDS: BUDESONIDE (INHALATION) 180 MCG IH IN SCH (19:51)
[2021-07-03] MEDS ORDERED: AMINO ACID INFUSION IN D10W 1,000 ML IV NR (20:00)
[2021-07-03 22:00] VITALS: BP 134/84
[2021-07-03] MEDS: ATORVASTATIN 20 MG TAB PO SCH (22:00)
[2021-07-04] MEDS ORDERED: DEXTROSE (50%) 50ML SYRG IV SCH
[2021-07-04] MEDS: InsuLIN REG 1unit/0.01ml Soln (100units/ml) SC SCH ×5 (00:05→23:12)
[2021-07-04] MEDS: SOD CHL 0.45% 1,000 ML IV SCH ×2 (05:09→10:45)
[2021-07-04 05:29] VITALS: BP 156/82
[2021-07-04] MEDS: ACCU-CHEK COMFORT CURVE STRIP VI SCH ×4 (05:56→23:12)
[2021-07-04 06:32] LABS: Potassium 3.8 mmol/L (3.5-5.1)
[2021-07-04] MEDS: BUDESONIDE (INHALATION) 180 MCG IH IN SCH ×2 (06:35→21:28)
[2021-07-04 06:38] LABS: BUN/Creatinine Ratio 40.6; Bilirubin, Total 0.5 mg/dL (0.2-1.0); Calcium 7.9 mg/dL (8.5-10.1); Magnesium 3.8 mg/dL (1.6-2.6); Phosphorus 3.6 mg/dL (2.5-4.90); Pre Albumin 19.8 mg/dL (20.0-40.0); Total Protein 6.6 g/dL (6.4-8.2)
[2021-07-04] MEDS: ALBUTEROL SULF HFA 90MCG INH 200DOSE IN PRN ×2 (07:54→21:28)
[2021-07-04 08:00] VITALS: BP 169/84
[2021-07-04] MEDS: Glucerna Carbsteady SHAKE Vanilla 8oz PO SCH ×2 (08:00→18:00)
[2021-07-04] MEDS: HEPARIN SODIUM (PORCINE) 5000 UNITS/ML 1ML VIAL SC SCH ×2 (10:00→23:10)
[2021-07-04] MEDS: ASPirin 81 mg TAB PO SCH (10:37)
[2021-07-04] MEDS: ZINC SULFATE 220mg CAP or TAB PO SCH (10:37)
[2021-07-04] MEDS: FAMOTIDINE (10MG/ML) 2ML VL IV SCH ×2 (10:37→23:09)
[2021-07-04] MEDS: MULTIPLE VITAMIN TAB PO SCH (10:38)
[2021-07-04] MEDS: ASCORBIC ACID 1,000 MG TAB PO SCH (10:38)
[2021-07-04 11:53] LABS: INR 1.2 (0.9-1.15); Partial Thromboplastin Time 35.4 sec (23.6-33.0)
[2021-07-04] MEDS: METOPROLOL TARTRATE 25 MG TAB PO SCH ×2 (11:58→22:00)
[2021-07-04] MEDS: amLODIPine BESYLATE 5 MG TAB PO SCH (11:59)
[2021-07-04 12:00] VITALS: BP 149/77
[2021-07-04] MEDS: CHOLECALCIFEROL (VITD3) 2,000 UNIT CAP/TAB PO SCH (12:00)
[2021-07-04] MEDS: D5W 5% 1,000 ML IV SCH ×2 (12:30→23:13)
[2021-07-04] MEDS ORDERED: LIDOCAINE 1% (LOCAL ANESTH.) PF 5ml SDV ID ONE (15:45)
[2021-07-04 16:46] VITALS: BP 150/70
[2021-07-04] MEDS ORDERED: ACYCLOVIR 10MG/KG Q8HR PER RX 0 ML IV SCH (17:00)
[2021-07-04] MEDS ORDERED: DexAMETHasone INJECTION 10 MG in D5W 5% 50 ML IV ONE (17:15)
[2021-07-04] MEDS ORDERED: PPN PER PHARMACY IV NR ×7 (20:00)
[2021-07-04] MEDS: ACYCLOVIR SOD 50MG/ML 500 MG in D5W 5% 100 ML IV SCH (20:21)
[2021-07-04 22:00] VITALS: BP 155/72
[2021-07-04] MEDS: ATORVASTATIN 20 MG TAB PO SCH (22:00)
[2021-07-04] MEDS: SODIUM CHLOR 0.9% PF (SALINE LOCK) 10ML VIAL/SYR IV SCH (23:09)
[2021-07-05 05:00] VITALS: BP 110/71
[2021-07-05] MEDS: InsuLIN REG 1unit/0.01ml Soln (100units/ml) SC SCH ×4 (06:27→23:19)
[2021-07-05] MEDS: ACCU-CHEK COMFORT CURVE STRIP VI SCH ×4 (06:27→23:20)
[2021-07-05 06:38] LABS: Potassium 3.8 mmol/L (3.5-5.1)
[2021-07-05 06:44] LABS: Albumin 1.9 g/dL (3.4-5.0); BUN/Creatinine Ratio 43.6; Bilirubin, Total 0.6 mg/dL (0.2-1.0); Calcium 7.8 mg/dL (8.5-10.1); Magnesium 3.3 mg/dL (1.6-2.6); Phosphorus 2.5 mg/dL (2.5-4.90); Total Protein 6.2 g/dL (6.4-8.2)
[2021-07-05] MEDS: BUDESONIDE (INHALATION) 180 MCG IH IN SCH ×2 (07:19→20:30)
[2021-07-05] MEDS: ALBUTEROL SULF HFA 90MCG INH 200DOSE IN PRN ×2 (07:19→20:30)
[2021-07-05] MEDS: ACYCLOVIR SOD 50MG/ML 500 MG in D5W 5% 100 ML IV SCH ×2 (07:19→18:16)
[2021-07-05 08:30] VITALS: BP 136/72
[2021-07-05] MEDS: DexAMETHasone INJECTION 10 MG in D5W 5% 50 ML IV SCH (10:28)
[2021-07-05] MEDS: FAMOTIDINE (10MG/ML) 2ML VL IV SCH ×2 (10:28→23:29)
[2021-07-05] MEDS: Glucerna Carbsteady SHAKE Vanilla 8oz PO SCH ×2 (10:28→18:06)
[2021-07-05] MEDS: D5W 5% 1,000 ML IV SCH ×2 (10:28→19:30)
[2021-07-05] MEDS: ASPirin 81 mg TAB PO SCH (10:29)
[2021-07-05] MEDS: ZINC SULFATE 220mg CAP or TAB PO SCH (10:29)
[2021-07-05] MEDS: SODIUM CHLOR 0.9% PF (SALINE LOCK) 10ML VIAL/SYR IV SCH ×2 (10:29→22:42)
[2021-07-05] MEDS: ASCORBIC ACID 1,000 MG TAB PO SCH (10:30)
[2021-07-05] MEDS: METOPROLOL TARTRATE 25 MG TAB PO SCH ×2 (10:30→22:00)
[2021-07-05] MEDS: CHOLECALCIFEROL (VITD3) 2,000 UNIT CAP/TAB PO SCH (10:30)
[2021-07-05] MEDS: MULTIPLE VITAMIN TAB PO SCH (10:30)
[2021-07-05] MEDS: amLODIPine BESYLATE 5 MG TAB PO SCH (10:30)
[2021-07-05] MEDS: HEPARIN SODIUM (PORCINE) 5000 UNITS/ML 1ML VIAL SC SCH ×2 (10:31→23:16)
[2021-07-05 13:00] VITALS: BP 158/68
[2021-07-05 16:54] VITALS: BP 159/67
[2021-07-05] MEDS ORDERED: PPN PER PHARMACY IV NR ×8 (20:00)
[2021-07-05 21:57] LABS: BUN/Creatinine Ratio 37.9; Calcium 8.2 mg/dL (8.5-10.1); Potassium 4.4 mmol/L (3.5-5.1)
[2021-07-05 22:00] VITALS: BP 153/59
[2021-07-05] MEDS: ATORVASTATIN 20 MG TAB PO SCH (22:00)
[2021-07-05] MEDS: INSULIN LANTUS (GLARGINE) 1 /0.01ml (100units/ml) SC SCH (23:17)
[2021-07-06] MEDS: hydrALAZINE HCL 20 MG/ML VL IV PRN ×2 (00:19→18:31)
[2021-07-06] MEDS: D5W 5% 1,000 ML IV SCH ×2 (04:30→17:32)
[2021-07-06 04:49] VITALS: BP_SYST 137; BP_SYST 149; BP_DIAS 72
[2021-07-06] MEDS: ACCU-CHEK COMFORT CURVE STRIP VI SCH ×3 (06:00→17:35)
[2021-07-06] MEDS: ACYCLOVIR SOD 50MG/ML 500 MG in D5W 5% 100 ML IV SCH ×2 (06:46→18:12)
[2021-07-06] MEDS: InsuLIN REG 1unit/0.01ml Soln (100units/ml) SC SCH ×3 (06:47→17:34)
[2021-07-06 07:01] LABS: Hematocrit 39.6 % (36.0-46.0); Mean Corpuscular Hemoglobin 31.1 pg (28.0-32.0); Mean Corpuscular Hgb Conc. 32.8 g/dL (32.0-36.0); Mean Corpuscular Volume 94.6 fL (80.0-100.0); Red Blood Cells 4.19 10^6/uL (4.0-5.20); Red Cell Distribution Width 13.6 % (11.8-14.3); White Blood Cell 22.2 10^3/uL (4.4-10.8)
[2021-07-06] MEDS: BUDESONIDE (INHALATION) 180 MCG IH IN SCH ×2 (07:09→22:25)
[2021-07-06] MEDS: ALBUTEROL SULF HFA 90MCG INH 200DOSE IN PRN ×2 (07:09→23:43)
[2021-07-06 07:11] LABS: Basophils % (manual) 0 (0.0-2.0); Blast Cells 0; Eosinophils % (manual) 0 (0-7); Metamyelocytes % 0; Myelocytes % 0; Promyelocytes % 0; Reactive Lymphocytes 0
[2021-07-06 07:24] LABS: Potassium 3.4 mmol/L (3.5-5.1)
[2021-07-06 07:48] LABS: Albumin 1.9 g/dL (3.4-5.0); BUN/Creatinine Ratio 40.3; Bilirubin, Total 0.6 mg/dL (0.2-1.0); Calcium 8.3 mg/dL (8.5-10.1); Magnesium 2.1 mg/dL (1.6-2.6); Phosphorus 2.3 mg/dL (2.5-4.90); Total Protein 6.3 g/dL (6.4-8.2)
[2021-07-06 08:00] VITALS: BP 141/63
[2021-07-06 08:18] LABS: Band Neutrophils % (manual) 5; Lymphocytes % (manual) 3 (10.0-50.0); Monocytes % (manual) 5 (0-12)
[2021-07-06] MEDS ORDERED: POTASSIUM PHOSPHATE 22 MEQ in SODIUM CHL 0.9% 100 ML IV ONE (08:30)
[2021-07-06] MEDS: FAMOTIDINE (10MG/ML) 2ML VL IV SCH ×2 (11:06→22:48)
[2021-07-06 12:00] VITALS: BP 155/75
[2021-07-06] MEDS: DexAMETHasone INJECTION 10 MG in D5W 5% 50 ML IV SCH ×2 (13:11→17:33)
[2021-07-06] MEDS: SODIUM CHLOR 0.9% PF (SALINE LOCK) 10ML VIAL/SYR IV SCH ×2 (13:12→22:48)
[2021-07-06] MEDS: ASPirin 81 mg TAB PO SCH (13:12)
[2021-07-06] MEDS: Glucerna Carbsteady SHAKE Vanilla 8oz PO SCH ×2 (13:12→18:13)
[2021-07-06] MEDS: ZINC SULFATE 220mg CAP or TAB PO SCH (13:13)
[2021-07-06] MEDS: MULTIPLE VITAMIN TAB PO SCH (13:14)
[2021-07-06] MEDS: METOPROLOL TARTRATE 25 MG TAB PO SCH ×2 (13:14→22:49)
[2021-07-06] MEDS: CHOLECALCIFEROL (VITD3) 2,000 UNIT CAP/TAB PO SCH (13:15)
[2021-07-06] MEDS: ASCORBIC ACID 1,000 MG TAB PO SCH (13:15)
[2021-07-06] MEDS: amLODIPine BESYLATE 5 MG TAB PO SCH (13:15)
[2021-07-06] MEDS: HEPARIN SODIUM (PORCINE) 5000 UNITS/ML 1ML VIAL SC SCH ×2 (13:16→22:49)
[2021-07-06 17:00] VITALS: BP 162/70
[2021-07-06] MEDS ORDERED: PPN PER PHARMACY IV NR ×8 (20:00)
[2021-07-06 21:38] VITALS: BP 157/64
[2021-07-06] MEDS: ATORVASTATIN 20 MG TAB PO SCH (22:48)
[2021-07-06] MEDS: INSULIN LANTUS (GLARGINE) 1 /0.01ml (100units/ml) SC SCH (22:50)
[2021-07-07] MEDS: ACCU-CHEK COMFORT CURVE STRIP VI SCH ×5 (00:54→23:18)
[2021-07-07] MEDS: InsuLIN REG 1unit/0.01ml Soln (100units/ml) SC SCH ×5 (00:55→23:22)
[2021-07-07 04:33] VITALS: BP 155/58
[2021-07-07] MEDS: D5W 5% 1,000 ML IV SCH ×3 (04:37→13:04)
[2021-07-07] MEDS: ACYCLOVIR SOD 50MG/ML 500 MG in D5W 5% 100 ML IV SCH ×2 (06:23→18:04)
[2021-07-07 06:29] LABS: Albumin 1.8 g/dL (3.4-5.0); Anion Gap 7 (5-15); BUN/Creatinine Ratio 43.4; Blood Urea Nitrogen 53 mg/dL (7-18); Calcium 7.7 mg/dL (8.5-10.1); Carbon Dioxide 17 mmol/L (21-32); Chloride 119 mmol/L (98-107); GFR African American 55 mL/min; GFR Non-African American 46 mL/min; Glucose 302 mg/dL (74-106); Magnesium 2.4 mg/dL (1.6-2.6); Potassium 4.4 mmol/L (3.5-5.1); Sodium 143 mmol/L (136-145)
[2021-07-07 06:43] LABS: Alanine Aminotransferase 95 U/L (13-56); Alkaline Phosphatase 130 U/L (45-117); Aspartate Aminotransferase 77 U/L (15-37); Bilirubin, Total 0.6 mg/dL (0.2-1.0); Phosphorus 3.4 mg/dL (2.5-4.90); Total Protein 6.2 g/dL (6.4-8.2)
[2021-07-07 09:00] VITALS: BP 157/73
[2021-07-07] MEDS: BUDESONIDE (INHALATION) 180 MCG IH IN SCH ×2 (10:00→19:45)
[2021-07-07] MEDS: CHOLECALCIFEROL (VITD3) 2,000 UNIT CAP/TAB PO SCH (10:00)
[2021-07-07] MEDS: ASCORBIC ACID 1,000 MG TAB PO SCH (10:00)
[2021-07-07] MEDS: Glucerna Carbsteady SHAKE Vanilla 8oz PO SCH ×2 (11:54→18:00)
[2021-07-07] MEDS: SODIUM CHLOR 0.9% PF (SALINE LOCK) 10ML VIAL/SYR IV SCH ×2 (11:54→21:56)
[2021-07-07] MEDS: FAMOTIDINE (10MG/ML) 2ML VL IV SCH ×2 (11:54→21:56)
[2021-07-07] MEDS: ASPirin 81 mg TAB PO SCH (11:56)
[2021-07-07] MEDS: ZINC SULFATE 220mg CAP or TAB PO SCH (11:57)
[2021-07-07] MEDS: MULTIPLE VITAMIN TAB PO SCH (11:58)
[2021-07-07] MEDS: METOPROLOL TARTRATE 25 MG TAB PO SCH ×2 (11:58→22:22)
[2021-07-07] MEDS: amLODIPine BESYLATE 5 MG TAB PO SCH (12:00)
[2021-07-07 12:39] VITALS: BP 157/69
[2021-07-07] MEDS: HEPARIN SODIUM (PORCINE) 5000 UNITS/ML 1ML VIAL SC SCH ×2 (12:54→22:01)
[2021-07-07 16:43] VITALS: BP 156/58
[2021-07-07] MEDS ORDERED: PPN PER PHARMACY IV NR ×6 (20:00)
[2021-07-07] MEDS: ALBUTEROL SULF HFA 90MCG INH 200DOSE IN PRN (20:38)
[2021-07-07 21:56] VITALS: BP 117/66
[2021-07-07] MEDS: ATORVASTATIN 20 MG TAB PO SCH (21:56)
[2021-07-07] MEDS: INSULIN LANTUS (GLARGINE) 1 /0.01ml (100units/ml) SC SCH (23:22)
[2021-07-08] MEDS: D5W 5% 1,000 ML IV SCH (03:16)
[2021-07-08 04:44] VITALS: BP 149/67
[2021-07-08] MEDS: ACCU-CHEK COMFORT CURVE STRIP VI SCH ×4 (05:48→23:49)
[2021-07-08] MEDS: InsuLIN REG 1unit/0.01ml Soln (100units/ml) SC SCH ×4 (05:49→23:50)
[2021-07-08] MEDS: ACYCLOVIR SOD 50MG/ML 500 MG in D5W 5% 100 ML IV SCH ×2 (05:49→17:46)
[2021-07-08] MEDS: ALBUTEROL SULF HFA 90MCG INH 200DOSE IN PRN ×2 (08:15→20:37)
[2021-07-08] MEDS: BUDESONIDE (INHALATION) 180 MCG IH IN SCH ×2 (08:15→20:36)
[2021-07-08 09:19] VITALS: BP 157/63
[2021-07-08] MEDS: HEPARIN SODIUM (PORCINE) 5000 UNITS/ML 1ML VIAL SC SCH ×2 (10:20→22:44)
[2021-07-08 11:26] LABS: Albumin 1.7 g/dL (3.4-5.0); Calcium 7.7 mg/dL (8.5-10.1); Potassium 3.6 mmol/L (3.5-5.1)
[2021-07-08 11:33] LABS: BUN/Creatinine Ratio 46.2; Bilirubin, Total 0.7 mg/dL (0.2-1.0); Phosphorus 2.5 mg/dL (2.5-4.90); Total Protein 5.8 g/dL (6.4-8.2)
[2021-07-08] MEDS: CHOLECALCIFEROL (VITD3) 2,000 UNIT CAP/TAB PO SCH (11:43)
[2021-07-08] MEDS: amLODIPine BESYLATE 5 MG TAB PO SCH (11:43)
[2021-07-08] MEDS: MULTIPLE VITAMIN TAB PO SCH (11:43)
[2021-07-08] MEDS: ASCORBIC ACID 1,000 MG TAB PO SCH (11:43)
[2021-07-08] MEDS: FAMOTIDINE (10MG/ML) 2ML VL IV SCH ×2 (11:44→22:01)
[2021-07-08] MEDS: Glucerna Carbsteady SHAKE Vanilla 8oz PO SCH ×2 (11:44→17:46)
[2021-07-08] MEDS: ASPirin 81 mg TAB PO SCH (11:44)
[2021-07-08] MEDS: ZINC SULFATE 220mg CAP or TAB PO SCH (11:44)
[2021-07-08] MEDS: METOPROLOL TARTRATE 25 MG TAB PO SCH ×2 (11:44→22:02)
[2021-07-08] MEDS: SODIUM CHLOR 0.9% PF (SALINE LOCK) 10ML VIAL/SYR IV SCH ×2 (11:44→22:01)
[2021-07-08 13:22] VITALS: BP 151/60
[2021-07-08 17:00] VITALS: BP 110/76
[2021-07-08] MEDS ORDERED: PPN PER PHARMACY IV NR ×6 (20:00)
[2021-07-08 22:00] VITALS: BP 143/66
[2021-07-08] MEDS: ATORVASTATIN 20 MG TAB PO SCH (22:00)
[2021-07-08] MEDS: INSULIN LANTUS (GLARGINE) 1 /0.01ml (100units/ml) SC SCH (22:24)
[2021-07-09 04:51] VITALS: BP 146/59
[2021-07-09] MEDS: InsuLIN REG 1unit/0.01ml Soln (100units/ml) SC SCH ×3 (05:42→18:00)
[2021-07-09] MEDS: ACCU-CHEK COMFORT CURVE STRIP VI SCH ×3 (05:43→18:06)
[2021-07-09] MEDS: ACYCLOVIR SOD 50MG/ML 500 MG in D5W 5% 100 ML IV SCH ×2 (06:08→18:27)
[2021-07-09 08:05] LABS: Potassium 3.7 mmol/L (3.5-5.1)
[2021-07-09 08:11] LABS: Albumin 1.7 g/dL (3.4-5.0); BUN/Creatinine Ratio 46.6; Bilirubin, Total 0.7 mg/dL (0.2-1.0); Calcium 7.6 mg/dL (8.5-10.1); Phosphorus 2.7 mg/dL (2.5-4.90); Total Protein 5.7 g/dL (6.4-8.2)
[2021-07-09 08:17] VITALS: BP 154/64
[2021-07-09] MEDS: Glucerna Carbsteady SHAKE Vanilla 8oz PO SCH ×2 (09:25→18:06)
[2021-07-09] MEDS: SODIUM CHLOR 0.9% PF (SALINE LOCK) 10ML VIAL/SYR IV SCH ×2 (09:25→22:12)
[2021-07-09] MEDS: FAMOTIDINE (10MG/ML) 2ML VL IV SCH ×2 (09:25→22:11)
[2021-07-09] MEDS: ASPirin 81 mg TAB PO SCH (09:27)
[2021-07-09] MEDS: ZINC SULFATE 220mg CAP or TAB PO SCH (09:27)
[2021-07-09] MEDS: METOPROLOL TARTRATE 25 MG TAB PO SCH ×2 (09:28→22:15)
[2021-07-09] MEDS: MULTIPLE VITAMIN TAB PO SCH (09:29)
[2021-07-09] MEDS: amLODIPine BESYLATE 5 MG TAB PO SCH (09:29)
[2021-07-09] MEDS: ASCORBIC ACID 1,000 MG TAB PO SCH (09:30)
[2021-07-09] MEDS: CHOLECALCIFEROL (VITD3) 2,000 UNIT CAP/TAB PO SCH (09:30)
[2021-07-09] MEDS: HEPARIN SODIUM (PORCINE) 5000 UNITS/ML 1ML VIAL SC SCH ×2 (09:31→22:39)
[2021-07-09] MEDS: BUDESONIDE (INHALATION) 180 MCG IH IN SCH ×2 (09:42→22:00)
[2021-07-09] MEDS: ALBUTEROL SULF HFA 90MCG INH 200DOSE IN PRN (09:42)
[2021-07-09 12:00] VITALS: BP 148/62
[2021-07-09 16:00] VITALS: BP 142/60
[2021-07-09] MEDS ORDERED: PPN PER PHARMACY IV NR ×7 (20:00)
[2021-07-09 21:27] VITALS: BP 154/62
[2021-07-09] MEDS: ATORVASTATIN 20 MG TAB PO SCH (22:00)
[2021-07-09] MEDS: INSULIN LANTUS (GLARGINE) 1 /0.01ml (100units/ml) SC SCH (22:39)
[2021-07-10] MEDS: ACCU-CHEK COMFORT CURVE STRIP VI SCH ×3 (00:22→11:58)
[2021-07-10] MEDS: InsuLIN REG 1unit/0.01ml Soln (100units/ml) SC SCH ×3 (00:31→11:59)
[2021-07-10] MEDS: ALBUTEROL SULF HFA 90MCG INH 200DOSE IN PRN ×2 (03:03→11:01)
[2021-07-10 05:00] VITALS: BP 145/61
[2021-07-10] MEDS: ACYCLOVIR SOD 50MG/ML 500 MG in D5W 5% 100 ML IV SCH (05:26)
[2021-07-10 07:24] LABS: Potassium 3.8 mmol/L (3.5-5.1)
[2021-07-10 07:35] LABS: Albumin 1.7 g/dL (3.4-5.0); Bilirubin, Total 0.7 mg/dL (0.2-1.0); Calcium 7.9 mg/dL (8.5-10.1); Phosphorus 2.8 mg/dL (2.5-4.90); Total Protein 5.8 g/dL (6.4-8.2)
[2021-07-10] MEDS: Glucerna Carbsteady SHAKE Vanilla 8oz PO SCH (08:00)
[2021-07-10 09:06] VITALS: BP 154/62
[2021-07-10] MEDS: FAMOTIDINE (10MG/ML) 2ML VL IV SCH (10:03)
[2021-07-10] MEDS: ASPirin 81 mg TAB PO SCH (10:03)
[2021-07-10] MEDS: SODIUM CHLOR 0.9% PF (SALINE LOCK) 10ML VIAL/SYR IV SCH (10:03)
[2021-07-10] MEDS: ZINC SULFATE 220mg CAP or TAB PO SCH (10:04)
[2021-07-10] MEDS: amLODIPine BESYLATE 5 MG TAB PO SCH (10:05)
[2021-07-10] MEDS: ASCORBIC ACID 1,000 MG TAB PO SCH (10:05)
[2021-07-10] MEDS: MULTIPLE VITAMIN TAB PO SCH (10:05)
[2021-07-10] MEDS: METOPROLOL TARTRATE 25 MG TAB PO SCH (10:05)
[2021-07-10] MEDS: HEPARIN SODIUM (PORCINE) 5000 UNITS/ML 1ML VIAL SC SCH (10:06)
[2021-07-10] MEDS: CHOLECALCIFEROL (VITD3) 2,000 UNIT CAP/TAB PO SCH (10:06)
[2021-07-10] MEDS: BUDESONIDE (INHALATION) 180 MCG IH IN SCH (11:02)
[2021-07-10 13:00] VITALS: BP 157/68
[2021-07-10] MEDS ORDERED: VALA500T33 PO (13:04)
[2021-07-10 15:11] LABS: Basophils # (auto) 0 10 ^3/uL (0-0.2); Basophils % (auto) 0.3 % (0.0-2.0); Eosinophils # (auto) 0.1 10 ^3/uL (0-0.8); Eosinophils % (auto) 0.9 % (0.0-7.0); Hematocrit 34.1 % (36.0-46.0); Hemoglobin 11.5 g/dL (12.2-16.2); Mean Corpuscular Hemoglobin 31.7 pg (28.0-32.0); Mean Corpuscular Hgb Conc. 33.8 g/dL (32.0-36.0); Mean Corpuscular Volume 93.6 fL (80.0-100.0); Monocytes # (auto) 0.5 10 ^3/uL (0-1.3); Monocytes % (auto) 4.9 % (0.0-12.0); Neutrophils # (auto) 8.7 10 ^3/uL (1.6-8.6); Neutrophils % (auto) 83.9 % (37.0-80.0); Red Blood Cells 3.64 10^6/uL (4.0-5.20); Red Cell Distribution Width 13.4 % (11.8-14.3); White Blood Cell 10.4 10^3/uL (4.4-10.8)
[2021-07-10 16:18] VITALS: BP 157/68
[2021-07-10] MEDS ORDERED: PPN PER PHARMACY IV NR ×8 (20:00)
== END 2021-07-10 18:23 | disposition home health service (06) | DRG 871 ==
LOC: ER 13:36 → TELE 21:59 → TELE-WESTW 06-23 02:45
PROVIDERS: ADMIT Nurse Practitioner Family; ATTEND Internal Medicine
PROC: XW033E5 Introduction of Remdesivir Anti-infective into Peripheral Vein, Percutaneous Approach, New Technology Group 5 (ICD-10-PCS; 2021-06-26)
PROC: 02HV33Z Insertion of Infusion Device into Superior Vena Cava, Percutaneous Approach (ICD-10-PCS; principal; 2021-07-04)
PROC: 3E0336Z Introduction of Nutritional Substance into Peripheral Vein, Percutaneous Approach (ICD-10-PCS; 2021-07-04)
DX: A41.89 Other specified sepsis (principal); U07.1 COVID-19; J12.82 Pneumonia due to coronavirus disease 2019; J96.01 Acute respiratory failure with hypoxia; N17.0 Acute kidney failure with tubular necrosis; G92.8 Other toxic encephalopathy; J98.11 Atelectasis; E87.1 Hypo-osmolality and hyponatremia; J44.0 Chronic obstructive pulmonary disease with (acute) lower respiratory infection; E87.0 Hyperosmolality and hypernatremia; N39.0 Urinary tract infection, site not specified; E88.09 Other disorders of plasma-protein metabolism, not elsewhere classified; E11.22 Type 2 diabetes mellitus with diabetic chronic kidney disease; N18.9 Chronic kidney disease, unspecified; I25.10 Atherosclerotic heart disease of native coronary artery without angina pectoris; I12.9 Hypertensive chronic kidney disease with stage 1 through stage 4 chronic kidney disease, or unspecified chronic kidney disease; F41.9 Anxiety disorder, unspecified; E87.5 Hyperkalemia; E86.0 Dehydration; M10.9 Gout, unspecified; M54.9 Dorsalgia, unspecified; R53.81 Other malaise; R74.01 Elevation of levels of liver transaminase levels; Z91.19 Patient's noncompliance with other medical treatment and regimen; Z79.899 Other long term (current) drug therapy; Z88.5 Allergy status to narcotic agent; Z88.0 Allergy status to penicillin; I25.2 Old myocardial infarction; Z90.49 Acquired absence of other specified parts of digestive tract; Z79.84 Long term (current) use of oral hypoglycemic drugs
CPT/HCPCS: 36415; 36569; 70450; 71045; 74176; 76705; 80048; 80053; 80061; 81001; 82040; 82140; 82728; 82962; 83036; 83615; 83735; 83880; 84100; 84443; 84478; 84481; 84484; 85007; 85025; 85027; 85379; 85610; 85730; 86141; 86704; 86706; 86708; 86803; 87040; 87340; 87426; 92507; 92610; 93005; 93306; 94640; 95819; 96360; 97110; 97116; 97163; 97530; G0378; J0696; J1100; J1815; J2405; J3490; J7042; J7060; Q0162

== ENCOUNTER 2021-08-15 09:25 | Inpatient (IN) | payer OTHER ==
[~2021-08-15] VITALS: Ht 165.1 cm; Wt 70.0 kg
[~2021-08-15 09:25] MED LIST: ATOR40TA52 PO; DULA0.5I SC; GABA300C10 PO; GLIP5TAB12 PO; HYDR25TA4 PO; LISI-716 PO; METF-372 PO; OMEP-335 PO; VALA500T33 PO
[2021-08-15] MEDS ORDERED: ONDANSETRON HCL 4 MG/2 ML VIAL IV ONE (10:00)
[2021-08-15] MEDS ORDERED: MORPHINE SULFATE 4 MG/ML SYR/VIAL IV ONE (10:00)
[2021-08-15 10:43] LABS: Urine Bacteria NONE SEEN /hpf (None Seen); Urine Blood Negative /uL (Negative); Urine WBC <1 /hpf (0 - 5)
[2021-08-15 10:55] LABS: Basophils # (auto) 0.1 10 ^3/uL (0-0.2); Eosinophils # (auto) 0.2 10 ^3/uL (0-0.8); Eosinophils % (auto) 1.4 % (0.0-7.0); Hematocrit 35.9 % (36.0-46.0); Lymphocytes # (auto) 1.2 10 ^3/uL (0.4-5.4); Lymphocytes % (auto) 9.5 % (10.0-50.0); Mean Corpuscular Hemoglobin 33.7 pg (28.0-32.0); Mean Corpuscular Hgb Conc. 33.5 g/dL (32.0-36.0); Mean Corpuscular Volume 100.8 fL (80.0-100.0); Monocytes # (auto) 0.3 10 ^3/uL (0-1.3); Monocytes % (auto) 2.7 % (0.0-12.0); Neutrophils # (auto) 10.7 10 ^3/uL (1.6-8.6); Neutrophils % (auto) 85.4 % (37.0-80.0); Nucleated Red Blood Cells % 0.1 %; Red Blood Cells 3.56 10^6/uL (4.0-5.20); Red Cell Distribution Width 18.8 % (11.8-14.3); White Blood Cell 12.6 10^3/uL (4.4-10.8)
[2021-08-15 11:02] LABS: INR 1.1 (0.9-1.15); Partial Thromboplastin Time 27.4 sec (23.6-33.0)
[2021-08-15 11:05] LABS: Albumin 2.6 g/dL (3.4-5.0); Calcium 8.9 mg/dL (8.5-10.1); Potassium 3.7 mmol/L (3.5-5.1)
[2021-08-15 11:10] LABS: BUN/Creatinine Ratio 24.3; Bilirubin, Total 0.4 mg/dL (0.2-1.0); Total Protein 7.4 g/dL (6.4-8.2)
[2021-08-15] MEDS ORDERED: cefTRIAXone 1GM/50ML D5W 50 ML IV ONE (13:30)
[2021-08-15] MEDS ORDERED: AZITHROMYCIN 500MG/ 250ML 250 ML IV ONE (13:30)
[2021-08-15] MEDS ORDERED: HYDROmorphone HCL 2 MG/ML VL IV ONE (13:30)
[2021-08-15] MEDS ORDERED: ACETAMINOPHEN 325 MG TAB PO PRN (15:00)
[2021-08-15] MEDS ORDERED: NITROGLYCERIN 0.4 MG SL TAB SL PRN (15:00)
[2021-08-15] MEDS ORDERED: MORPHINE SULFATE INJECTION 2 MG/ML SYRG IV PRN (15:00)
[2021-08-15] MEDS ORDERED: DEXTROSE (50%) 50ML SYRG IV PRN (16:15)
[2021-08-15] MEDS ORDERED: VANCOMYCIN PER PHARMACY 0 MG IV SCH (16:15)
[2021-08-15] MEDS ORDERED: FUROSEMIDE 20 MG/2 ML VIAL IV ONE (16:15)
[2021-08-15] MEDS ORDERED: IOHEXOL 350 MG/ML 100ML IJ ONE (16:17)
[2021-08-15] MEDS ORDERED: VANCOMYCIN 1GM/250ML 250 ML IV ONE (16:30)
[2021-08-15] MEDS: InsuLIN REG 1unit/0.01ml Soln (100units/ml) SC SCH ×2 (16:46→21:30)
[2021-08-15] MEDS: ACCU-CHEK COMFORT CURVE STRIP VI SCH ×2 (16:46→21:28)
[2021-08-15 17:33] VITALS: BP 147/67
[2021-08-15 18:36] VITALS: BP 147/67
[2021-08-15] MEDS: VALACYCLOVIR HCL 500 MG TAB PO SCH (21:28)
[2021-08-15] MEDS: GABAPENTIN 300 MG CAP PO SCH (21:28)
[2021-08-15] MEDS: ATORVASTATIN 20 MG TAB PO SCH (21:28)
[2021-08-15] MEDS: HYDROmorphone HCL 2 MG/ML VL IV PRN (21:39)
[2021-08-15 22:00] VITALS: BP 169/76
[2021-08-16] MEDS: HYDROmorphone HCL 2 MG/ML VL IV PRN ×4 (04:17→19:53)
[2021-08-16 05:01] VITALS: BP 166/78
[2021-08-16] MEDS: VALACYCLOVIR HCL 500 MG TAB PO SCH ×3 (05:25→22:23)
[2021-08-16] MEDS: InsuLIN REG 1unit/0.01ml Soln (100units/ml) SC SCH ×4 (05:25→22:22)
[2021-08-16] MEDS: ACCU-CHEK COMFORT CURVE STRIP VI SCH ×4 (05:25→22:21)
[2021-08-16] MEDS: GABAPENTIN 300 MG CAP PO SCH ×3 (05:27→22:25)
[2021-08-16] MEDS: FUROSEMIDE 20 MG/2 ML VIAL IV SCH ×2 (05:33→17:07)
[2021-08-16 09:00] VITALS: BP 123/98
[2021-08-16 09:07] LABS: Basophils # (auto) 0.1 10 ^3/uL (0-0.2); Eosinophils # (auto) 0.1 10 ^3/uL (0-0.8); Eosinophils % (auto) 0.8 % (0.0-7.0); Mean Corpuscular Hemoglobin 34.2 pg (28.0-32.0); Nucleated Red Blood Cells % 0.1 %
[2021-08-16 09:08] LABS: Basophils % (auto) 0.5 % (0.0-2.0); Hematocrit 34.5 % (36.0-46.0); Hemoglobin 11.8 g/dL (12.2-16.2); Lymphocytes # (auto) 0.8 10 ^3/uL (0.4-5.4); Lymphocytes % (auto) 5.9 % (10.0-50.0); Mean Corpuscular Hgb Conc. 34.1 g/dL (32.0-36.0); Monocytes # (auto) 0.6 10 ^3/uL (0-1.3); Neutrophils # (auto) 11.3 10 ^3/uL (1.6-8.6); Neutrophils % (auto) 87.8 % (37.0-80.0); Red Blood Cells 3.44 10^6/uL (4.0-5.20); Red Cell Distribution Width 18.4 % (11.8-14.3); White Blood Cell 12.8 10^3/uL (4.4-10.8)
[2021-08-16 09:11] LABS: Mean Corpuscular Volume 100.2 fL (80.0-100.0)
[2021-08-16 09:23] LABS: Calcium 9.1 mg/dL (8.5-10.1); Potassium 3.8 mmol/L (3.5-5.1)
[2021-08-16 09:26] LABS: BUN/Creatinine Ratio 21.8
[2021-08-16] MEDS: LISINOPRIL 10 MG TAB PO SCH (10:23)
[2021-08-16] MEDS: VANCOMYCIN 1GM/250ML 250 ML IV SCH (11:45)
[2021-08-16 12:24] VITALS: BP 146/62
[2021-08-16] MEDS ORDERED: traMADol HCL 50 MG TAB PO PRN (16:30)
[2021-08-16 17:00] VITALS: BP 155/67
[2021-08-16 17:30] VITALS: BP 148/76
[2021-08-16 22:00] VITALS: BP 144/74
[2021-08-16] MEDS: ATORVASTATIN 20 MG TAB PO SCH (22:25)
[2021-08-17] VITALS (10 sets, daily range): BP systolic 108–140; BP diastolic 55–83
[2021-08-17] MEDS: HYDROmorphone HCL 2 MG/ML VL IV PRN ×2 (00:54→06:26)
[2021-08-17] MEDS: VANCOMYCIN 1GM/250ML 250 ML IV SCH ×2 (05:10→22:54)
[2021-08-17 05:28] LABS: Eosinophils # (auto) 0.1 10 ^3/uL (0-0.8); Monocytes # (auto) 0.7 10 ^3/uL (0-1.3); Neutrophils # (auto) 8.7 10 ^3/uL (1.6-8.6); Red Blood Cells 3.31 10^6/uL (4.0-5.20)
[2021-08-17 05:29] LABS: Basophils # (auto) 0.1 10 ^3/uL (0-0.2); Basophils % (auto) 1.3 % (0.0-2.0); Eosinophils % (auto) 1.2 % (0.0-7.0); Hematocrit 33.4 % (36.0-46.0); Hemoglobin 11.3 g/dL (12.2-16.2); Lymphocytes # (auto) 0.8 10 ^3/uL (0.4-5.4); Lymphocytes % (auto) 7.2 % (10.0-50.0); Mean Corpuscular Hgb Conc. 33.7 g/dL (32.0-36.0); Mean Corpuscular Volume 100.8 fL (80.0-100.0); Monocytes % (auto) 7.1 % (0.0-12.0); Neutrophils % (auto) 83.2 % (37.0-80.0); Nucleated Red Blood Cells % 0.1 %; White Blood Cell 10.4 10^3/uL (4.4-10.8)
[2021-08-17 05:47] LABS: Albumin 2.4 g/dL (3.4-5.0); BUN/Creatinine Ratio 21.6; Calcium 8.8 mg/dL (8.5-10.1); Potassium 3.6 mmol/L (3.5-5.1)
[2021-08-17 05:50] LABS: Bilirubin, Total 0.5 mg/dL (0.2-1.0); Total Protein 7.1 g/dL (6.4-8.2)
[2021-08-17] MEDS: GABAPENTIN 300 MG CAP PO SCH ×3 (06:00→22:35)
[2021-08-17] MEDS: VALACYCLOVIR HCL 500 MG TAB PO SCH ×3 (06:00→22:36)
[2021-08-17] MEDS: FUROSEMIDE 20 MG/2 ML VIAL IV SCH ×2 (06:15→17:45)
[2021-08-17] MEDS: ACCU-CHEK COMFORT CURVE STRIP VI SCH ×4 (06:16→22:23)
[2021-08-17] MEDS: InsuLIN REG 1unit/0.01ml Soln (100units/ml) SC SCH ×4 (06:18→22:25)
[2021-08-17] MEDS: LISINOPRIL 10 MG TAB PO SCH (09:42)
[2021-08-17] MEDS ORDERED: VANCOMYCIN HCL 1000 MG VL ONE (11:49)
[2021-08-17] MEDS ORDERED: KETOROLAC TROMETH 30 MG/ML 1ML VIAL ONE (11:49)
[2021-08-17] MEDS ORDERED: TRANEXAMIC ACID 20 ML ONE (11:50)
[2021-08-17] MEDS ORDERED: BUPIVACAINE 0.25% INJ 50ML VIAL ONE (11:51)
[2021-08-17] MEDS ORDERED: BUPIVACAINE W/ EPINEPH 0.25% INJ 50ML MDV ONE (11:52)
[2021-08-17] MEDS ORDERED: MORPHINE SULF PF 5 MG/10 ML VIAL ONE ×2 (12:02→12:06)
[2021-08-17] MEDS ORDERED: BUPIVACAINE 0.5% P/F INJ 10 ML VIAL ONE (12:03)
[2021-08-17] MEDS ORDERED: FAMOTIDINE (10MG/ML) 2ML VL IV ONE (12:03)
[2021-08-17] MEDS ORDERED: fentaNYL CITRATE 100 MCG/2 ML VL ONE (12:06)
[2021-08-17] MEDS ORDERED: PROPOFOL 10 MG/ML 20 ML IV ONE (12:06)
[2021-08-17] MEDS ORDERED: GLYCOPYRROLATE 0.2 MG/ML 1ML VIAL ONE (12:06)
[2021-08-17] MEDS ORDERED: ONDANSETRON HCL 4 MG/2 ML VIAL ONE (12:06)
[2021-08-17] MEDS ORDERED: ePHEDrine SULFATE 50 MG/ML AMP ONE (12:06)
[2021-08-17] MEDS ORDERED: MIDAZOLAM HCL 2MG/2ML 2ml VIAL (1mg/ml) ONE (12:06)
[2021-08-17] MEDS ORDERED: ceFAZolin 1GM/50ML 100 ML IV ONE (12:19)
[2021-08-17] MEDS ORDERED: KETAMINE 50mg/ML 10ml Vial (500mg/10ml) IV ONE (12:20)
[2021-08-17] MEDS ORDERED: EPINEPHrine HCL 1 MG/1 ML AMP ONE (13:41)
[2021-08-17] MEDS ORDERED: ONDANSETRON HCL 4 MG/2 ML VIAL IV PRN ×2 (15:00)
[2021-08-17] MEDS ORDERED: KETOROLAC TROMETH 30 MG/ML 1ML VIAL IV PRN (15:00)
[2021-08-17] MEDS ORDERED: NALOXONE HCL 0.4 MG/ML VIAL IV PRN ×2 (15:00)
[2021-08-17] MEDS ORDERED: ACCU-CHEK COMFORT CURVE STRIP VI ONE (15:00)
[2021-08-17] MEDS ORDERED: DexAMETHasone SOD PHOS 10MG/1ML VIAL INJ IV PRN (15:00)
[2021-08-17] MEDS: LACTATED RINGER'S 1,000 ML IV SCH (18:28)
[2021-08-17] MEDS: ceFAZolin 1GM/50ML 50 ML IV SCH (21:05)
[2021-08-17] MEDS: FAMOTIDINE (10MG/ML) 2ML VL IV SCH (22:35)
[2021-08-17] MEDS: ATORVASTATIN 20 MG TAB PO SCH (22:36)
[2021-08-18] VITALS (20 sets, daily range): BP systolic 110–164; BP diastolic 52–76
[2021-08-18] MEDS: LACTATED RINGER'S 1,000 ML IV SCH ×3 (00:15→20:15)
[2021-08-18 05:48] LABS: Basophils # (auto) 0.1 10 ^3/uL (0-0.2); Basophils % (auto) 0.6 % (0.0-2.0); Eosinophils # (auto) 0.1 10 ^3/uL (0-0.8); Eosinophils % (auto) 0.6 % (0.0-7.0); Hematocrit 29.1 % (36.0-46.0); Hemoglobin 9.8 g/dL (12.2-16.2); Lymphocytes # (auto) 0.9 10 ^3/uL (0.4-5.4); Lymphocytes % (auto) 7.3 % (10.0-50.0); Mean Corpuscular Hemoglobin 33.9 pg (28.0-32.0); Mean Corpuscular Hgb Conc. 33.8 g/dL (32.0-36.0); Mean Corpuscular Volume 100.4 fL (80.0-100.0); Monocytes # (auto) 0.8 10 ^3/uL (0-1.3); Monocytes % (auto) 6.7 % (0.0-12.0); Neutrophils # (auto) 9.9 10 ^3/uL (1.6-8.6); Neutrophils % (auto) 84.8 % (37.0-80.0); Nucleated Red Blood Cells % 0.1 %; Red Cell Distribution Width 17.8 % (11.8-14.3); White Blood Cell 11.7 10^3/uL (4.4-10.8)
[2021-08-18] MEDS: ceFAZolin 1GM/50ML 50 ML IV SCH (05:52)
[2021-08-18] MEDS: FUROSEMIDE 20 MG/2 ML VIAL IV SCH ×2 (05:55→18:07)
[2021-08-18] MEDS: GABAPENTIN 300 MG CAP PO SCH ×3 (05:55→21:33)
[2021-08-18 06:05] LABS: Calcium 8.5 mg/dL (8.5-10.1); Potassium 3.8 mmol/L (3.5-5.1)
[2021-08-18 06:08] LABS: BUN/Creatinine Ratio 21.6
[2021-08-18] MEDS: InsuLIN REG 1unit/0.01ml Soln (100units/ml) SC SCH ×4 (06:19→21:48)
[2021-08-18] MEDS: ACCU-CHEK COMFORT CURVE STRIP VI SCH ×4 (06:19→21:46)
[2021-08-18] MEDS: FAMOTIDINE (10MG/ML) 2ML VL IV SCH ×2 (09:47→21:34)
[2021-08-18] MEDS: LISINOPRIL 10 MG TAB PO SCH (09:47)
[2021-08-18] MEDS: VALACYCLOVIR HCL 500 MG TAB PO SCH ×2 (09:48→21:35)
[2021-08-18] MEDS: HYDROcodone-ACET 10/325MG TAB PO PRN ×2 (12:17→16:30)
[2021-08-18] MEDS ORDERED: HCTZ 25 MG TAB PO ONE (16:30)
[2021-08-18] MEDS: ATORVASTATIN 20 MG TAB PO SCH (21:34)
[2021-08-19] MEDS: HYDROmorphone HCL 2 MG/ML VL IV PRN ×2 (02:57→10:40)
[2021-08-19 05:27] VITALS: BP 171/68
[2021-08-19] MEDS: FUROSEMIDE 20 MG/2 ML VIAL IV SCH (06:13)
[2021-08-19] MEDS: GABAPENTIN 300 MG CAP PO SCH ×2 (06:14→14:31)
[2021-08-19] MEDS: LACTATED RINGER'S 1,000 ML IV SCH (06:14)
[2021-08-19] MEDS: InsuLIN REG 1unit/0.01ml Soln (100units/ml) SC SCH ×2 (06:28→12:00)
[2021-08-19] MEDS: ACCU-CHEK COMFORT CURVE STRIP VI SCH ×2 (06:28→11:59)
[2021-08-19] MEDS ORDERED: SOD CHL 0.45% 1,000 ML IV SCH (08:45)
[2021-08-19 08:52] LABS: Calcium 8.6 mg/dL (8.5-10.1); Potassium 3.6 mmol/L (3.5-5.1)
[2021-08-19 08:55] LABS: BUN/Creatinine Ratio 22.4; Basophils # (auto) 0.1 10 ^3/uL (0-0.2); Basophils % (auto) 0.8 % (0.0-2.0); Bilirubin, Total 0.6 mg/dL (0.2-1.0); Eosinophils # (auto) 0.4 10 ^3/uL (0-0.8); Eosinophils % (auto) 3.5 % (0.0-7.0); Hematocrit 30.1 % (36.0-46.0); Hemoglobin 10.3 g/dL (12.2-16.2); Lymphocytes # (auto) 0.7 10 ^3/uL (0.4-5.4); Lymphocytes % (auto) 6.8 % (10.0-50.0); Mean Corpuscular Hemoglobin 34.6 pg (28.0-32.0); Mean Corpuscular Hgb Conc. 34.4 g/dL (32.0-36.0); Monocytes # (auto) 0.7 10 ^3/uL (0-1.3); Monocytes % (auto) 6.5 % (0.0-12.0); Neutrophils # (auto) 8.9 10 ^3/uL (1.6-8.6); Neutrophils % (auto) 82.4 % (37.0-80.0); Red Blood Cells 2.99 10^6/uL (4.0-5.20); Red Cell Distribution Width 17.5 % (11.8-14.3); Total Protein 6.7 g/dL (6.4-8.2); White Blood Cell 10.8 10^3/uL (4.4-10.8)
[2021-08-19 08:56] LABS: Mean Corpuscular Volume 100.7 fL (80.0-100.0)
[2021-08-19] MEDS ORDERED: APIX2.5T PO (08:56)
[2021-08-19 09:01] VITALS: BP 184/77
[2021-08-19] MEDS: FAMOTIDINE (10MG/ML) 2ML VL IV SCH (09:21)
[2021-08-19] MEDS: LISINOPRIL 10 MG TAB PO SCH (09:21)
[2021-08-19] MEDS: VALACYCLOVIR HCL 500 MG TAB PO SCH (09:22)
[2021-08-19] MEDS ORDERED: HCTZ 25 MG TAB PO SCH (10:00)
[2021-08-19] MEDS ORDERED: METOPROLOL TARTRATE 25 MG TAB PO SCH (10:00)
[2021-08-19 13:50] VITALS: BP 142/59
[2021-08-19 15:28] VITALS: BP 168/72
== END 2021-08-19 15:55 | disposition hospice, home (50) | DRG 521 ==
LOC: EDBD 09:25 → ER 09:25 → TELE 14:50 → TELE-CENTR 17:30
PROVIDERS: ADMIT Hospitalist; ATTEND Hospitalist
PROC: 0SRR0J9 Replacement of Right Hip Joint, Femoral Surface with Synthetic Substitute, Cemented, Open Approach (ICD-10-PCS; principal; 2021-08-17 12:25)
DX: S72.001A Fracture of unspecified part of neck of right femur, initial encounter for closed fracture (principal); J18.9 Pneumonia, unspecified organism; I50.31 Acute diastolic (congestive) heart failure; J44.0 Chronic obstructive pulmonary disease with (acute) lower respiratory infection; E44.1 Mild protein-calorie malnutrition; M79.18 Myalgia, other site; W18.30XA Fall on same level, unspecified, initial encounter; E78.5 Hyperlipidemia, unspecified; E11.9 Type 2 diabetes mellitus without complications; F17.210 Nicotine dependence, cigarettes, uncomplicated; I11.0 Hypertensive heart disease with heart failure; I25.10 Atherosclerotic heart disease of native coronary artery without angina pectoris; U09.9 Post COVID-19 condition, unspecified; K21.9 Gastro-esophageal reflux disease without esophagitis; M10.9 Gout, unspecified; Z20.822 Contact with and (suspected) exposure to COVID-19; Z99.81 Dependence on supplemental oxygen; Y92.009 Unspecified place in unspecified non-institutional (private) residence as the place of occurrence of the external cause; I25.2 Old myocardial infarction; Z79.84 Long term (current) use of oral hypoglycemic drugs; Z87.01 Personal history of pneumonia (recurrent); Z88.5 Allergy status to narcotic agent; Z88.0 Allergy status to penicillin; Z90.49 Acquired absence of other specified parts of digestive tract
CPT/HCPCS: 36415; 70450; 71045; 72170; 72192; 73502; 80048; 80053; 80202; 81001; 82565; 82962; 83880; 84484; 85025; 85610; 85730; 86850; 86900; 86901; 93005; 93306; 96365; 96367; 96368; 96372; 96375; 97110; 97116; 97163; 97530; G0378; J0171; J0690; J0696; J1815; J1885; J2250; J2405; J2704; J3490

== ENCOUNTER 2024-02-06 21:55 | Inpatient (IN) | payer OTHER, BC ==
[~2024-02-06] VITALS: Ht 165.1 cm; Wt 69.0 kg
[~2024-02-06 21:55] MED LIST changes: +APIX2.5T PO; +GABA-1250 PO; -GABA300C10 PO; -GLIP5TAB12 PO; +GLIP5TAB21 PO; -LISI-716 PO; +LISI10TA34 PO
[2024-02-06 22:21] LABS: Basophils # (auto) 0.1 10 ^3/uL (0-0.2); Basophils % (auto) 0.9 % (0.0-2.0); Eosinophils # (auto) 0.3 10 ^3/uL (0-0.8); Eosinophils % (auto) 2.9 % (0.0-7.0); Hematocrit 43.7 % (36.0-46.0); Lymphocytes # (auto) 1.2 10 ^3/uL (0.4-5.4); Lymphocytes % (auto) 9.8 % (10.0-50.0); Mean Corpuscular Hemoglobin 32.7 pg (28.0-32.0); Mean Corpuscular Hgb Conc. 34.4 g/dL (32.0-36.0); Monocytes # (auto) 0.5 10 ^3/uL (0-1.3); Monocytes % (auto) 3.9 % (0.0-12.0); Neutrophils # (auto) 9.7 10 ^3/uL (1.6-8.6); Neutrophils % (auto) 82.5 % (37.0-80.0); Nucleated Red Blood Cells % 0.1 %; Platelet Count (auto) 233 10^3/uL (140-450); Red Blood Cells 4.59 10^6/uL (4.0-5.20); Red Cell Distribution Width 13.3 % (11.8-14.3); White Blood Cell 11.7 10^3/uL (4.4-10.8)
[2024-02-06 22:41] LABS: Alanine Aminotransferase 30 U/L (7-40); Alkaline Phosphatase 120 U/L (46-116); Anion Gap 9 (5-15); Aspartate Aminotransferase 28 U/L (13-40); Blood Urea Nitrogen 39 mg/dL (9-23); Calcium 9.6 mg/dL (8.7-10.4); Carbon Dioxide 21 mmol/L (20-30); Chloride 105 mmol/L (98-107); Glucose 352 mg/dL (74-106); Potassium 3.8 mmol/L (3.5-5.1); Sodium 135 mmol/L (136-145)
[2024-02-06 22:42] LABS: Albumin 4.2 g/dL (3.2-4.8); Bilirubin, Total 0.3 mg/dL (0.2-1.0); Total Protein 7.8 g/dL (5.7-8.2)
[2024-02-07] VITALS (10 sets, daily range): BP systolic 113–155; BP diastolic 49–73; PULSE 69–84; RESP 12–18; TEMP 98.4; O2SAT 94–97
[2024-02-07] MEDS ORDERED: AZITHROMYCIN 500MG/ 250ML 250 ML IV ONE (01:00)
[2024-02-07] MEDS: HEPARIN SODIUM (PORCINE) 5000 UNITS/ML 1ML VIAL IV ONE ×2 (04:15→11:45)
[2024-02-07] MEDS: levoFLOXacin 750MG 150 ML IV ONE (04:17)
[2024-02-07 10:53] LABS: Basophils # (auto) 0.1 10 ^3/uL (0-0.2); Basophils % (auto) 0.8 % (0.0-2.0); Eosinophils # (auto) 0.2 10 ^3/uL (0-0.8); Eosinophils % (auto) 2.2 % (0.0-7.0); Hematocrit 44.9 % (36.0-46.0); Hemoglobin 15.3 g/dL (12.2-16.2); Lymphocytes # (auto) 1.5 10 ^3/uL (0.4-5.4); Lymphocytes % (auto) 15.4 % (10.0-50.0); Mean Corpuscular Hemoglobin 32.4 pg (28.0-32.0); Mean Corpuscular Hgb Conc. 34.1 g/dL (32.0-36.0); Mean Corpuscular Volume 94.9 fL (80.0-100.0); Monocytes # (auto) 0.6 10 ^3/uL (0-1.3); Monocytes % (auto) 6.3 % (0.0-12.0); Neutrophils # (auto) 7.1 10 ^3/uL (1.6-8.6); Neutrophils % (auto) 75.3 % (37.0-80.0); Platelet Count (auto) 235 10^3/uL (140-450); Red Blood Cells 4.73 10^6/uL (4.0-5.20); Red Cell Distribution Width 13.5 % (11.8-14.3); White Blood Cell 9.5 10^3/uL (4.4-10.8)
[2024-02-07 11:22] LABS: Alanine Aminotransferase 34 U/L (7-40); Albumin 4.3 g/dL (3.2-4.8); Alkaline Phosphatase 116 U/L (46-116); Anion Gap 5 (5-15); Aspartate Aminotransferase 86 U/L (13-40); BUN/Creatinine Ratio 27.9 (10.0-20.0); Bilirubin, Total 0.3 mg/dL (0.2-1.0); Calcium 9.8 mg/dL (8.7-10.4); Carbon Dioxide 24 mmol/L (20-30); Chloride 110 mmol/L (98-107); Glucose 129 mg/dL (74-106); Potassium 4.2 mmol/L (3.5-5.1); Sodium 139 mmol/L (136-145); Total Protein 7.6 g/dL (5.7-8.2)
[2024-02-07 11:30] LABS: Blood Urea Nitrogen 50 mg/dL (9-23)
[2024-02-07] MEDS ORDERED: NITROGLYCERIN 0.4 MG SL TAB SL PRN (11:45)
[2024-02-07] MEDS: ASPirin-EC 325mg tab PO ONE (11:45)
[2024-02-07] MEDS: METOPROLOL TARTRATE 25 MG TAB PO SCH ×2 (11:45→21:51)
[2024-02-07] MEDS: CLOPIDOGREL BISULFATE 75 MG TAB PO ONE (11:45)
[2024-02-07] MEDS ORDERED: MORPHINE SULFATE INJ 2 MG/ml SYRG IV PRN ×2 (11:45→18:15)
[2024-02-07] MEDS ORDERED: HYDROcodone-ACET 5/325MG TAB PO PRN (11:45)
[2024-02-07] MEDS ORDERED: HYDROmorphone HCL 2 MG/ML VL/or syr IV PRN (11:45)
[2024-02-07] MEDS: HEPARIN DRIP/D5W 100UNITS/ML 250 ML IV SCH ×2 (11:45→19:15)
[2024-02-07 12:12] LABS: INR 1.08 (0.9-1.15); Partial Thromboplastin Time 22.8 SEC (24.5-34.5); Prothrombin Time 11.4 sec (9.3-11.8)
[2024-02-07] MEDS ORDERED: LABETALOL HCL 20 MG/4 ML VL IV PRN (12:15)
[2024-02-07] MEDS: LACTATED RINGER'S 1,000 ML IV ONE (12:22)
[2024-02-07] MEDS ORDERED: hydrALAZINE HCL 20 MG/ML VL IV PRN (16:00)
[2024-02-07 16:59] LABS: Magnesium 2.1 mg/dL (1.6-2.6)
[2024-02-07] MEDS: IODIXANOL 320MG/ML 100ML BTL IV ONE (17:09)
[2024-02-07] MEDS: HEPARIN IN NS 1000Units/500mL 1,500 ML ONE (17:10)
[2024-02-07] MEDS: SODIUM CHLORIDE 0.9% 1,000 ML IV SCH (17:30)
[2024-02-07] MEDS: MIDAZOLAM HCL 2MG/2ML 2ml VIAL (1mg/ml) ONE (17:32)
[2024-02-07] MEDS: VERAPAMIL 2.5MG/ML INJ 2ML VIAL IV ONE (17:32)
[2024-02-07] MEDS: ANGIOMAX 250 MG VIAL IV ONE (17:32)
[2024-02-07] MEDS: fentaNYL CITRATE 100 MCG/2 ML VL ONE (17:32)
[2024-02-07] MEDS: SODIUM CHL 0.9% 0 ML ONE (17:33)
[2024-02-07] MEDS: LIDOCAINE 2%HCL (LOCAL ANESTH.) INJ 20ML MDV ONE (18:11)
[2024-02-07] MEDS: ONDANSETRON HCL 4 MG/2 ML VIAL IV PRN (18:39)
[2024-02-07] MEDS ORDERED: DEXTROSE (50%) 50ML SYRG IV PRN (19:00)
[2024-02-07 19:10] LABS: INR 1.12 (0.9-1.15); Partial Thromboplastin Time 40.4 SEC (24.5-34.5); Prothrombin Time 11.8 sec (9.3-11.8)
[2024-02-07] MEDS: InsuLIN REG 1unit/0.01ml Soln (100units/ml) SC SCH (21:30)
[2024-02-07] MEDS: ACCU-CHEK COMFORT CURVE STRIP VI SCH (21:47)
[2024-02-08] VITALS (9 sets, daily range): BP systolic 131–170; BP diastolic 57–73; PULSE 66–84; RESP 18; TEMP 98–98.2; O2SAT 93–99
[2024-02-08] MEDS: levoFLOXacin 250MG 50 ML IV SCH (02:35)
[2024-02-08] MEDS: InsuLIN REG 1unit/0.01ml Soln (100units/ml) SC SCH (06:38)
[2024-02-08 06:40] LABS: Basophils # (auto) 0.1 10 ^3/uL (0-0.2); Basophils % (auto) 0.6 % (0.0-2.0); Eosinophils # (auto) 0.2 10 ^3/uL (0-0.8); Eosinophils % (auto) 1.8 % (0.0-7.0); Hematocrit 40.4 % (36.0-46.0); Hemoglobin 14.3 g/dL (12.2-16.2); Lymphocytes # (auto) 1.8 10 ^3/uL (0.4-5.4); Lymphocytes % (auto) 16.7 % (10.0-50.0); Mean Corpuscular Hemoglobin 33.8 pg (28.0-32.0); Mean Corpuscular Hgb Conc. 35.3 g/dL (32.0-36.0); Mean Corpuscular Volume 95.7 fL (80.0-100.0); Monocytes # (auto) 0.8 10 ^3/uL (0-1.3); Monocytes % (auto) 7.7 % (0.0-12.0); Neutrophils # (auto) 7.9 10 ^3/uL (1.6-8.6); Neutrophils % (auto) 73.2 % (37.0-80.0); Nucleated Red Blood Cells % 0.1 %; Platelet Count (auto) 212 10^3/uL (140-450); Red Blood Cells 4.22 10^6/uL (4.0-5.20); Red Cell Distribution Width 13.4 % (11.8-14.3); White Blood Cell 10.8 10^3/uL (4.4-10.8)
[2024-02-08 06:52] LABS: Alanine Aminotransferase 30 U/L (7-40); Albumin 3.9 g/dL (3.2-4.8); Alkaline Phosphatase 103 U/L (46-116); Anion Gap 9 (5-15); Aspartate Aminotransferase 64 U/L (13-40); BUN/Creatinine Ratio 23.9 (10.0-20.0); Blood Urea Nitrogen 45 mg/dL (9-23); Calcium 9.1 mg/dL (8.7-10.4); Carbon Dioxide 21 mmol/L (20-30); Chloride 110 mmol/L (98-107); Glucose 118 mg/dL (74-106); Potassium 3.8 mmol/L (3.5-5.1); Sodium 140 mmol/L (136-145)
[2024-02-08 06:53] LABS: Bilirubin, Total 0.4 mg/dL (0.2-1.0); Total Protein 7.1 g/dL (5.7-8.2)
[2024-02-08 08:34] LABS: INR 1.12 (0.9-1.15); Partial Thromboplastin Time 52.7 SEC (24.5-34.5); Prothrombin Time 11.8 sec (9.3-11.8)
[2024-02-08] MEDS: ASPirin 81 mg TAB PO SCH (08:39)
[2024-02-08] MEDS: GABAPENTIN 300 MG CAP PO SCH (08:39)
[2024-02-08] MEDS: ATORVASTATIN 20 MG TAB PO SCH (08:39)
[2024-02-08] MEDS: NIFEdipine ER 30 MG TAB PO SCH ×2 (08:40→11:30)
[2024-02-08] MEDS: CARVEDILOL 3.125 MG TAB PO ONE (12:22)
[2024-02-08 14:27] LABS: INR 1.14 (0.9-1.15)
[2024-02-08 14:32] LABS: Partial Thromboplastin Time 81.7 SEC (24.5-34.5)
[2024-02-08] MEDS: HEPARIN DRIP/D5W 100UNITS/ML 250 ML IV SCH ×2 (20:09→22:25)
[2024-02-08 21:15] LABS: INR 1.11 (0.9-1.15); Partial Thromboplastin Time 46.8 SEC (24.5-34.5); Prothrombin Time 11.7 sec (9.3-11.8)
[2024-02-08] MEDS: CARVEDILOL 3.125 MG TAB PO SCH (21:55)
[2024-02-08] MEDS ORDERED: HEPARIN DRIP/D5W 100UNITS/ML 250 ML IV SCH (22:00)
[2024-02-09] VITALS (10 sets, daily range): BP systolic 124–144; BP diastolic 58–71; PULSE 65–89; RESP 16–18; TEMP 97.8–98.7; O2SAT 93–98
[2024-02-09 06:22] LABS: Alanine Aminotransferase 28 U/L (7-40); Albumin 3.8 g/dL (3.2-4.8); Alkaline Phosphatase 102 U/L (46-116); Anion Gap 6 (5-15); Aspartate Aminotransferase 38 U/L (13-40); BUN/Creatinine Ratio 23.9 (10.0-20.0); Bilirubin, Total 0.4 mg/dL (0.2-1.0); Blood Urea Nitrogen 44 mg/dL (9-23); Carbon Dioxide 24 mmol/L (20-30); Chloride 110 mmol/L (98-107); Glucose 143 mg/dL (74-106); Potassium 3.9 mmol/L (3.5-5.1); Sodium 140 mmol/L (136-145); Total Protein 6.8 g/dL (5.7-8.2)
[2024-02-09 06:25] LABS: INR 1.12 (0.9-1.15); Prothrombin Time 11.8 sec (9.3-11.8)
[2024-02-09 06:27] LABS: Partial Thromboplastin Time 75.6 SEC (24.5-34.5)
[2024-02-09 06:43] LABS: Basophils # (auto) 0.1 10 ^3/uL (0-0.2); Basophils % (auto) 1.1 % (0.0-2.0); Eosinophils # (auto) 0.6 10 ^3/uL (0-0.8); Eosinophils % (auto) 6.1 % (0.0-7.0); Hematocrit 38.6 % (36.0-46.0); Hemoglobin 13.3 g/dL (12.2-16.2); Lymphocytes # (auto) 1.5 10 ^3/uL (0.4-5.4); Lymphocytes % (auto) 15.9 % (10.0-50.0); Mean Corpuscular Hemoglobin 33.3 pg (28.0-32.0); Mean Corpuscular Hgb Conc. 34.5 g/dL (32.0-36.0); Mean Corpuscular Volume 96.6 fL (80.0-100.0); Monocytes # (auto) 0.8 10 ^3/uL (0-1.3); Monocytes % (auto) 8.5 % (0.0-12.0); Neutrophils # (auto) 6.4 10 ^3/uL (1.6-8.6); Neutrophils % (auto) 68.4 % (37.0-80.0); Nucleated Red Blood Cells % 0.1 %; Platelet Count (auto) 208 10^3/uL (140-450); Red Cell Distribution Width 13.3 % (11.8-14.3); White Blood Cell 9.4 10^3/uL (4.4-10.8)
[2024-02-09] MEDS: HEPARIN DRIP/D5W 100UNITS/ML 250 ML IV SCH (06:43)
[2024-02-09 13:50] LABS: INR 1.11 (0.9-1.15); Partial Thromboplastin Time 52.3 SEC (24.5-34.5); Prothrombin Time 11.7 sec (9.3-11.8)
[2024-02-09 20:02] LABS: INR 1.07 (0.9-1.15); Partial Thromboplastin Time 48.7 SEC (24.5-34.5); Prothrombin Time 11.3 sec (9.3-11.8)
[2024-02-10] VITALS (8 sets, daily range): BP systolic 114–142; BP diastolic 40–72; PULSE 71–84; RESP 17–18; TEMP 97.9–98.5; O2SAT 91–98
[2024-02-10 03:04] LABS: Basophils # (auto) 0.1 10 ^3/uL (0-0.2); Basophils % (auto) 0.9 % (0.0-2.0); Eosinophils # (auto) 0.7 10 ^3/uL (0-0.8); Eosinophils % (auto) 5.8 % (0.0-7.0); Hematocrit 39.5 % (36.0-46.0); Hemoglobin 13.6 g/dL (12.2-16.2); Lymphocytes % (auto) 17.9 % (10.0-50.0); Mean Corpuscular Hemoglobin 32.8 pg (28.0-32.0); Mean Corpuscular Hgb Conc. 34.3 g/dL (32.0-36.0); Mean Corpuscular Volume 95.4 fL (80.0-100.0); Monocytes # (auto) 0.9 10 ^3/uL (0-1.3); Neutrophils # (auto) 7.6 10 ^3/uL (1.6-8.6); Neutrophils % (auto) 67.4 % (37.0-80.0); Nucleated Red Blood Cells % 0.1 %; Platelet Count (auto) 219 10^3/uL (140-450); Red Blood Cells 4.14 10^6/uL (4.0-5.20); Red Cell Distribution Width 13.6 % (11.8-14.3); White Blood Cell 11.3 10^3/uL (4.4-10.8)
[2024-02-10 03:22] LABS: Alanine Aminotransferase 24 U/L (7-40); Alkaline Phosphatase 103 U/L (46-116); Anion Gap 7 (5-15); Aspartate Aminotransferase 30 U/L (13-40); BUN/Creatinine Ratio 22.7 (10.0-20.0); Bilirubin, Total 0.5 mg/dL (0.2-1.0); Blood Urea Nitrogen 42 mg/dL (9-23); Calcium 8.9 mg/dL (8.7-10.4); Carbon Dioxide 23 mmol/L (20-30); Chloride 108 mmol/L (98-107); Glucose 102 mg/dL (74-106); INR 1.1 (0.9-1.15); Partial Thromboplastin Time 64.7 SEC (24.5-34.5); Prothrombin Time 11.6 sec (9.3-11.8); Sodium 138 mmol/L (136-145)
[2024-02-10] MEDS: NIFEdipine ER 30 MG TAB PO ONE (07:21)
[2024-02-10 11:03] LABS: INR 1.12 (0.9-1.15); Prothrombin Time 11.8 sec (9.3-11.8)
[2024-02-11] VITALS (8 sets, daily range): BP systolic 127–156; BP diastolic 65–83; PULSE 60–95; RESP 16–20; TEMP 97.8–98.4; O2SAT 95–100
[2024-02-11 08:24] LABS: Basophils # (auto) 0.1 10 ^3/uL (0-0.2); Basophils % (auto) 0.9 % (0.0-2.0); Eosinophils # (auto) 0.5 10 ^3/uL (0-0.8); Eosinophils % (auto) 4.4 % (0.0-7.0); Hematocrit 38.7 % (36.0-46.0); Hemoglobin 13.1 g/dL (12.2-16.2); Lymphocytes # (auto) 1.5 10 ^3/uL (0.4-5.4); Lymphocytes % (auto) 14.9 % (10.0-50.0); Mean Corpuscular Hemoglobin 32.3 pg (28.0-32.0); Mean Corpuscular Hgb Conc. 33.9 g/dL (32.0-36.0); Mean Corpuscular Volume 95.1 fL (80.0-100.0); Monocytes # (auto) 0.8 10 ^3/uL (0-1.3); Monocytes % (auto) 7.3 % (0.0-12.0); Neutrophils # (auto) 7.5 10 ^3/uL (1.6-8.6); Neutrophils % (auto) 72.5 % (37.0-80.0); Platelet Count (auto) 213 10^3/uL (140-450); Red Blood Cells 4.07 10^6/uL (4.0-5.20); Red Cell Distribution Width 13.4 % (11.8-14.3); White Blood Cell 10.3 10^3/uL (4.4-10.8)
[2024-02-11 08:43] LABS: Alanine Aminotransferase 25 U/L (7-40); Albumin 3.8 g/dL (3.2-4.8); Alkaline Phosphatase 107 U/L (46-116); Anion Gap 7 (5-15); Aspartate Aminotransferase 25 U/L (13-40); BUN/Creatinine Ratio 20.4 (10.0-20.0); Blood Urea Nitrogen 33 mg/dL (9-23); Carbon Dioxide 22 mmol/L (20-30); Chloride 110 mmol/L (98-107); Glucose 161 mg/dL (74-106); INR 1.16 (0.9-1.15); Partial Thromboplastin Time 66.6 SEC (24.5-34.5); Potassium 3.9 mmol/L (3.5-5.1); Prothrombin Time 12.2 sec (9.3-11.8); Sodium 139 mmol/L (136-145)
[2024-02-11 08:45] LABS: Bilirubin, Total 0.6 mg/dL (0.2-1.0); Total Protein 6.8 g/dL (5.7-8.2)
[2024-02-12] VITALS (8 sets, daily range): BP systolic 118–135; BP diastolic 43–68; PULSE 70–84; RESP 16–19; TEMP 97.7–98.6; O2SAT 96–100
[2024-02-12 07:18] LABS: Basophils # (auto) 0.1 10 ^3/uL (0-0.2); Basophils % (auto) 0.8 % (0.0-2.0); Eosinophils # (auto) 0.3 10 ^3/uL (0-0.8); Eosinophils % (auto) 3.1 % (0.0-7.0); Hematocrit 41.8 % (36.0-46.0); Hemoglobin 13.9 g/dL (12.2-16.2); Lymphocytes # (auto) 1.4 10 ^3/uL (0.4-5.4); Lymphocytes % (auto) 13.6 % (10.0-50.0); Mean Corpuscular Hemoglobin 32.7 pg (28.0-32.0); Mean Corpuscular Hgb Conc. 33.3 g/dL (32.0-36.0); Mean Corpuscular Volume 98.2 fL (80.0-100.0); Monocytes # (auto) 0.8 10 ^3/uL (0-1.3); Monocytes % (auto) 8.1 % (0.0-12.0); Neutrophils # (auto) 7.7 10 ^3/uL (1.6-8.6); Neutrophils % (auto) 74.4 % (37.0-80.0); Platelet Count (auto) 212 10^3/uL (140-450); Red Blood Cells 4.26 10^6/uL (4.0-5.20); Red Cell Distribution Width 13.8 % (11.8-14.3); White Blood Cell 10.4 10^3/uL (4.4-10.8)
[2024-02-12 07:35] LABS: Alanine Aminotransferase 28 U/L (7-40); Alkaline Phosphatase 109 U/L (46-116); Anion Gap 6 (5-15); Aspartate Aminotransferase 24 U/L (13-40); BUN/Creatinine Ratio 20.5 (10.0-20.0); Bilirubin, Total 0.7 mg/dL (0.2-1.0); Blood Urea Nitrogen 36 mg/dL (9-23); Calcium 9.2 mg/dL (8.7-10.4); Carbon Dioxide 22 mmol/L (20-30); Chloride 111 mmol/L (98-107); Glucose 167 mg/dL (74-106); Potassium 3.9 mmol/L (3.5-5.1); Sodium 139 mmol/L (136-145)
[2024-02-12 07:40] LABS: INR 1.13 (0.9-1.15); Partial Thromboplastin Time 60.6 SEC (24.5-34.5); Prothrombin Time 11.9 sec (9.3-11.8)
[2024-02-12] MEDS: DOCUSATE SOD 100 MG CAP PO PRN (09:36)
[2024-02-12] MEDS: ACETAMINOPHEN 325 MG TAB PO PRN (09:36)
[2024-02-13 01:00] VITALS: BP 122/81; PULSE 81; RESP 18; TEMP 98.1; O2SAT 96
[2024-02-13 05:00] VITALS: BP 142/64; PULSE 78; RESP 18; TEMP 97.7; O2SAT 95
[2024-02-13 07:26] LABS: Basophils # (auto) 0 10 ^3/uL (0-0.2); Basophils % (auto) 0.4 % (0.0-2.0); Eosinophils # (auto) 0.6 10 ^3/uL (0-0.8); Eosinophils % (auto) 5.7 % (0.0-7.0); Hematocrit 39.8 % (36.0-46.0); Hemoglobin 13.7 g/dL (12.2-16.2); Lymphocytes # (auto) 1.6 10 ^3/uL (0.4-5.4); Lymphocytes % (auto) 14.8 % (10.0-50.0); Mean Corpuscular Hemoglobin 32.8 pg (28.0-32.0); Mean Corpuscular Hgb Conc. 34.3 g/dL (32.0-36.0); Mean Corpuscular Volume 95.8 fL (80.0-100.0); Monocytes # (auto) 0.8 10 ^3/uL (0-1.3); Monocytes % (auto) 7.3 % (0.0-12.0); Neutrophils # (auto) 7.6 10 ^3/uL (1.6-8.6); Neutrophils % (auto) 71.8 % (37.0-80.0); Platelet Count (auto) 215 10^3/uL (140-450); Red Blood Cells 4.16 10^6/uL (4.0-5.20); Red Cell Distribution Width 13.5 % (11.8-14.3); White Blood Cell 10.6 10^3/uL (4.4-10.8)
[2024-02-13 08:00] VITALS: PULSE 71
[2024-02-13 08:58] LABS: INR 1.15 (0.9-1.15); Partial Thromboplastin Time 61.1 SEC (24.5-34.5); Prothrombin Time 12.1 sec (9.3-11.8)
[2024-02-13 10:16] VITALS: BP 146/72; PULSE 73; RESP 18; TEMP 98; O2SAT 96
[2024-02-13 13:39] VITALS: BP 148/68; PULSE 76; RESP 18; TEMP 98.1; O2SAT 98
[2024-02-13 18:00] VITALS: BP 151/73; PULSE 79; RESP 18; TEMP 98.1; O2SAT 97
== END 2024-02-13 19:25 | disposition short-term general hospital (02) | DRG 280 ==
LOC: ER 21:55 → TELE 02-07 11:46 → TELE-CENTR 02-07 11:46
PROVIDERS: ADMIT Student in an Organized Health Care Education/Training Program; ATTEND Internal Medicine
PROC: B211YZZ Fluoroscopy of Multiple Coronary Arteries using Other Contrast (ICD-10-PCS; principal; 2024-02-07)
PROC: 4A023N7 Measurement of Cardiac Sampling and Pressure, Left Heart, Percutaneous Approach (ICD-10-PCS; 2024-02-07)
DX: I21.4 Non-ST elevation (NSTEMI) myocardial infarction (principal); J15.69 Pneumonia due to other Gram-negative bacteria; J15.9 Unspecified bacterial pneumonia; N17.0 Acute kidney failure with tubular necrosis; J44.0 Chronic obstructive pulmonary disease with (acute) lower respiratory infection; E78.00 Pure hypercholesterolemia, unspecified; I25.10 Atherosclerotic heart disease of native coronary artery without angina pectoris; E11.22 Type 2 diabetes mellitus with diabetic chronic kidney disease; I12.9 Hypertensive chronic kidney disease with stage 1 through stage 4 chronic kidney disease, or unspecified chronic kidney disease; F17.210 Nicotine dependence, cigarettes, uncomplicated; M10.9 Gout, unspecified; Z88.5 Allergy status to narcotic agent; Z88.0 Allergy status to penicillin; Z79.899 Other long term (current) drug therapy; Z90.49 Acquired absence of other specified parts of digestive tract; Z71.6 Tobacco abuse counseling
CPT/HCPCS: 36415; 71045; 71250; 76775; 80053; 80061; 82962; 83036; 83735; 83880; 84443; 84484; 85025; 85610; 85730; 87040; 93005; 93306; 93458; 96365; 96366; 96367; 96375; 96376; G0378; J1815; J1956; J2250; J2405; Q9967

== ENCOUNTER 2024-02-22 05:08 | Inpatient (IN) | payer OTHER, BC ==
[2024-02-22] VITALS (13 sets, daily range): BP systolic 142–155; BP diastolic 65–75; PULSE 79–92; RESP 16–22; TEMP 98.1–98.3; O2SAT 93–99
[~2024-02-22] VITALS: Ht 165.1 cm; Wt 74.2 kg
[~2024-02-22 05:08] MED LIST changes: +CARV12.544 PO; +CLON0.1T PO; +CLOP75TA70 PO; +GLIP-110 PO; +NIFE1TAB30 PO
[2024-02-22] MEDS: methylPREDNISolone SOD SUCC 125 MG/2 ML VL IV ONE (07:08)
[2024-02-22 07:34] LABS: Basophils # (auto) 0 10 ^3/uL (0-0.2); Basophils % (auto) 0.2 % (0.0-2.0); Eosinophils # (auto) 0 10 ^3/uL (0-0.8); Hematocrit 33.4 % (36.0-46.0); Hemoglobin 11.4 g/dL (12.2-16.2); Lymphocytes # (auto) 0.9 10 ^3/uL (0.4-5.4); Lymphocytes % (auto) 5.6 % (10.0-50.0); Mean Corpuscular Hemoglobin 33.1 pg (28.0-32.0); Mean Corpuscular Hgb Conc. 34.2 g/dL (32.0-36.0); Mean Corpuscular Volume 96.8 fL (80.0-100.0); Monocytes # (auto) 0.6 10 ^3/uL (0-1.3); Monocytes % (auto) 4.2 % (0.0-12.0); Neutrophils # (auto) 13.7 10 ^3/uL (1.6-8.6); Nucleated Red Blood Cells % 0.1 %; Platelet Count (auto) 238 10^3/uL (140-450); Red Blood Cells 3.45 10^6/uL (4.0-5.20); White Blood Cell 15.3 10^3/uL (4.4-10.8)
[2024-02-22 07:35] LABS: Alanine Aminotransferase 32 U/L (7-40); Albumin 4.3 g/dL (3.2-4.8); Alkaline Phosphatase 101 U/L (46-116); Anion Gap 10 (5-15); Aspartate Aminotransferase 30 U/L (13-40); BUN/Creatinine Ratio 21.1 (10.0-20.0); Bilirubin, Total 0.8 mg/dL (0.2-1.0); Blood Urea Nitrogen 59 mg/dL (9-23); Calcium 9.1 mg/dL (8.7-10.4); Carbon Dioxide 17 mmol/L (20-30); Chloride 106 mmol/L (98-107); Glucose 257 mg/dL (74-106); Potassium 5.2 mmol/L (3.5-5.1); Sodium 133 mmol/L (136-145); Total Protein 7.7 g/dL (5.7-8.2)
[2024-02-22] MEDS: ALBUTEROL SULF 2.5 MG/0.5ML(0.5%) NEB SOLN NEB ONE (08:43)
[2024-02-22 10:03] LABS: Base Excess -7.3 mmol/L (-2.0-3.0)
[2024-02-22] MEDS: levoFLOXacin 500MG 100 ML IV ONE (10:46)
[2024-02-22] MEDS: FUROSEMIDE 40 MG/4 ML VIAL IV ONE (10:47)
[2024-02-22] MEDS ORDERED: ACETAMINOPHEN 325 MG TAB PO PRN (11:45)
[2024-02-22] MEDS ORDERED: NITROGLYCERIN 0.4 MG SL TAB SL PRN (11:45)
[2024-02-22] MEDS ORDERED: DEXTROSE (50%) 50ML SYRG IV PRN (11:45)
[2024-02-22] MEDS ORDERED: MORPHINE SULFATE INJ 2 MG/ml SYRG IV PRN (11:45)
[2024-02-22] MEDS: levoFLOXacin 500MG 100 ML IV SCH (11:45)
[2024-02-22] MEDS: ALBUTEROL SULF 2.5 MG/0.5ML(0.5%) NEB SOLN NEB SCH (13:03)
[2024-02-22] MEDS: IPRATROPIUM BROM 0.5 MG/2.5ML INH SOL NEB SCH (13:03)
[2024-02-22 14:42] LABS: COVID19 ANTIGEN SOFIA FIA NEGATIVE (NEGATIVE); Rapid Influenza A Negative (Negative); Rapid Influenza B Negative (Negative)
[2024-02-22] MEDS: ACCU-CHEK COMFORT CURVE STRIP VI SCH (17:23)
[2024-02-22] MEDS: InsuLIN REG 1unit/0.01ml Soln (100units/ml) SC SCH (17:25)
[2024-02-22 19:57] LABS: Hepatitis B Surface Antigen Negative (Negative)
[2024-02-22 20:18] LABS: Hepatitis C Antibody Negative (Negative)
[2024-02-22] MEDS: ATORVASTATIN 20 MG TAB PO SCH (21:38)
[2024-02-22] MEDS: APIXABAN 2.5 MG TAB PO SCH (21:38)
[2024-02-22] MEDS: methylPREDNISolone SOD SUCC 40 MG/ML VL IV SCH (21:38)
[2024-02-23] VITALS (26 sets, daily range): BP systolic 121–175; BP diastolic 72–88; PULSE 82–107; RESP 14–24; TEMP 97.5–98.1; O2SAT 89–100
[2024-02-23] MEDS: ALBUTEROL SULF 2.5 MG/0.5ML(0.5%) NEB SOLN NEB PRN (00:04)
[2024-02-23 05:51] LABS: Basophils # (auto) 0 10 ^3/uL (0-0.2); Basophils % (auto) 0.2 % (0.0-2.0); Eosinophils # (auto) 0 10 ^3/uL (0-0.8); Hematocrit 33.7 % (36.0-46.0); Hemoglobin 11.6 g/dL (12.2-16.2); Lymphocytes # (auto) 0.5 10 ^3/uL (0.4-5.4); Lymphocytes % (auto) 3.6 % (10.0-50.0); Mean Corpuscular Hemoglobin 33.3 pg (28.0-32.0); Mean Corpuscular Hgb Conc. 34.3 g/dL (32.0-36.0); Mean Corpuscular Volume 97.1 fL (80.0-100.0); Monocytes # (auto) 0.3 10 ^3/uL (0-1.3); Monocytes % (auto) 2.5 % (0.0-12.0); Neutrophils # (auto) 12.9 10 ^3/uL (1.6-8.6); Neutrophils % (auto) 93.7 % (37.0-80.0); Nucleated Red Blood Cells % 0.2 %; Platelet Count (auto) 281 10^3/uL (140-450); Red Blood Cells 3.47 10^6/uL (4.0-5.20); White Blood Cell 13.7 10^3/uL (4.4-10.8)
[2024-02-23 06:04] LABS: Alanine Aminotransferase 42 U/L (7-40); Albumin 4.2 g/dL (3.2-4.8); Alkaline Phosphatase 100 U/L (46-116); Anion Gap 11 (5-15); Aspartate Aminotransferase 38 U/L (13-40); BUN/Creatinine Ratio 29.2 (10.0-20.0); Bilirubin, Total 0.6 mg/dL (0.2-1.0); Blood Urea Nitrogen 69 mg/dL (9-23); Calcium 9.3 mg/dL (8.7-10.4); Carbon Dioxide 18 mmol/L (20-30); Chloride 108 mmol/L (98-107); Glucose 240 mg/dL (74-106); Potassium 4.7 mmol/L (3.5-5.1); Sodium 137 mmol/L (136-145); Total Protein 7.6 g/dL (5.7-8.2)
[2024-02-23] MEDS: METOPROLOL TARTRATE 25 MG TAB PO ONE (07:05)
[2024-02-23] MEDS ORDERED: PATIENTS OWN MEDICATION (Lisinopril 10 MG) PO SCH (10:00)
[2024-02-23] MEDS ORDERED: POTASSIUM PHOSPHATE 30 MEQ in SODIUM CHL 0.9% 100 ML IV ONE (10:00)
[2024-02-23] MEDS ORDERED: ENOXAPARIN SOD 40 MG/0.4 ML SYRINGE SC SCH (10:00)
[2024-02-23] MEDS: FUROSEMIDE 40 MG/4 ML VIAL IV ONE (10:20)
[2024-02-23] MEDS: hydrALAZINE HCL 20 MG/ML VL IV PRN (12:22)
[2024-02-23] MEDS: GABAPENTIN 300 MG CAP PO SCH (13:36)
[2024-02-23] MEDS: hydroCHLOROthiazide 25 MG TAB PO SCH (13:36)
[2024-02-23] MEDS: INSULIN LANTUS (GLARGINE) 1 /0.01ml (100units/ml) SC ONE (13:48)
[2024-02-23] MEDS ORDERED: FUROSEMIDE 40 MG/4 ML VIAL IV SCH (18:00)
[2024-02-23] MEDS: METOPROLOL TARTRATE 25 MG TAB PO SCH (21:10)
[2024-02-24] VITALS (20 sets, daily range): BP systolic 133–164; BP diastolic 55–86; PULSE 65–105; RESP 15–24; TEMP 97.2–98.2; O2SAT 95–100
[2024-02-24 06:21] LABS: Basophils # (auto) 0 10 ^3/uL (0-0.2); Basophils % (auto) 0.1 % (0.0-2.0); Eosinophils # (auto) 0 10 ^3/uL (0-0.8); Eosinophils % (auto) 0.1 % (0.0-7.0); Hematocrit 34.7 % (36.0-46.0); Hemoglobin 11.5 g/dL (12.2-16.2); Lymphocytes # (auto) 0.5 10 ^3/uL (0.4-5.4); Lymphocytes % (auto) 3.3 % (10.0-50.0); Mean Corpuscular Hemoglobin 32.4 pg (28.0-32.0); Mean Corpuscular Hgb Conc. 33.2 g/dL (32.0-36.0); Mean Corpuscular Volume 97.5 fL (80.0-100.0); Monocytes # (auto) 0.4 10 ^3/uL (0-1.3); Monocytes % (auto) 2.6 % (0.0-12.0); Neutrophils # (auto) 13.8 10 ^3/uL (1.6-8.6); Neutrophils % (auto) 93.9 % (37.0-80.0); Nucleated Red Blood Cells % 0.2 %; Platelet Count (auto) 322 10^3/uL (140-450); Red Blood Cells 3.55 10^6/uL (4.0-5.20); Red Cell Distribution Width 14.2 % (11.8-14.3); White Blood Cell 14.7 10^3/uL (4.4-10.8)
[2024-02-24] MEDS: INSULIN LANTUS (GLARGINE) 1 /0.01ml (100units/ml) SC SCH (06:28)
[2024-02-24 06:31] LABS: Anion Gap 11 (5-15); Calcium 9.3 mg/dL (8.7-10.4); Carbon Dioxide 18 mmol/L (20-30); Chloride 108 mmol/L (98-107); Potassium 4.8 mmol/L (3.5-5.1); Sodium 137 mmol/L (136-145)
[2024-02-24 06:37] LABS: BUN/Creatinine Ratio 32.3 (10.0-20.0); Blood Urea Nitrogen 74 mg/dL (9-23); Glucose 233 mg/dL (74-106)
[2024-02-24] MEDS ORDERED: DEXTROSE (50%) 50ML SYRG IV PRN (10:15)
[2024-02-24] MEDS: ACCU-CHEK COMFORT CURVE STRIP VI SCH (11:19)
[2024-02-24] MEDS: FUROSEMIDE 40 MG/4 ML VIAL IV ONE (11:24)
[2024-02-24 11:27] LABS: INR 1.16 (0.9-1.15); Partial Thromboplastin Time 24.9 SEC (24.5-34.5); Prothrombin Time 12.2 sec (9.3-11.8)
[2024-02-24] MEDS: InsuLIN REG 1unit/0.01ml Soln (100units/ml) SC SCH ×2 (12:29→22:22)
[2024-02-24] MEDS: DOXYCYCLINE 100MG/250ML 250 ML IV SCH ×2 (12:52→22:50)
[2024-02-24] MEDS: methylPREDNISolone SOD SUCC 40 MG/ML VL IV SCH (13:03)
[2024-02-24] MEDS: POLYETHYLENE GLYCOL 17 GM PWDR PO ONE (13:03)
[2024-02-24 13:56] LABS: Urine Bacteria None Seen /hpf (None Seen)
[2024-02-24 14:05] LABS: Urine Blood TRACE /uL (Negative); Urine Protein, UAD TRACE (Negative); Urine Specific Gravity 1.011 (1.001-1.035); Urine Urobilinogen Normal (Negative); Urine WBC 8 /hpf (0 - 5)
[2024-02-24 14:06] LABS: Urine Clarity Hazy (Clear); Urine Color Light-Yellow (Yellow)
[2024-02-24] MEDS: FUROSEMIDE 100 MG/10ML VIAL IV ONE (18:33)
[2024-02-25] VITALS (20 sets, daily range): BP systolic 129–149; BP diastolic 67–71; PULSE 81–89; RESP 14–18; TEMP 97.1–98.4; O2SAT 93–100
[2024-02-25 07:29] LABS: Basophils # (auto) 0 10 ^3/uL (0-0.2); Basophils % (auto) 0.1 % (0.0-2.0); Eosinophils # (auto) 0 10 ^3/uL (0-0.8); Eosinophils % (auto) 0.2 % (0.0-7.0); Hematocrit 32.6 % (36.0-46.0); Hemoglobin 11.2 g/dL (12.2-16.2); Lymphocytes # (auto) 0.9 10 ^3/uL (0.4-5.4); Lymphocytes % (auto) 6.3 % (10.0-50.0); Mean Corpuscular Hemoglobin 33.3 pg (28.0-32.0); Mean Corpuscular Hgb Conc. 34.4 g/dL (32.0-36.0); Mean Corpuscular Volume 96.8 fL (80.0-100.0); Monocytes # (auto) 1.2 10 ^3/uL (0-1.3); Monocytes % (auto) 8.3 % (0.0-12.0); Neutrophils # (auto) 12.4 10 ^3/uL (1.6-8.6); Neutrophils % (auto) 85.1 % (37.0-80.0); Nucleated Red Blood Cells % 0.2 %; Platelet Count (auto) 291 10^3/uL (140-450); Red Blood Cells 3.36 10^6/uL (4.0-5.20); Red Cell Distribution Width 14.2 % (11.8-14.3); White Blood Cell 14.5 10^3/uL (4.4-10.8)
[2024-02-25 07:39] LABS: Anion Gap 11 (5-15); Carbon Dioxide 23 mmol/L (20-30); Chloride 103 mmol/L (98-107); Potassium 4.1 mmol/L (3.5-5.1); Sodium 137 mmol/L (136-145)
[2024-02-25 07:40] LABS: Calcium 9.4 mg/dL (8.7-10.4)
[2024-02-25 07:45] LABS: Glucose 131 mg/dL (74-106)
[2024-02-25 08:01] LABS: Blood Urea Nitrogen 95 mg/dL (9-23)
[2024-02-25] MEDS: CEFEPIME 1GM/ 50ML 50 ML IV SCH (10:03)
[2024-02-25] MEDS ORDERED: AZIT-43 PO (15:23)
[2024-02-26] VITALS (14 sets, daily range): BP systolic 137–160; BP diastolic 66–91; PULSE 75–96; RESP 16–18; TEMP 97.5–98.4; O2SAT 93–99
[2024-02-26 01:57] LABS: Protein, Urine 29.6 mg/dL (0.0-11.9)
[2024-02-26 01:59] LABS: Creatinine, Urine 42.03 mg/dL (30.0-125.0); Urine Protein/Creatinine Ratio 0.7
[2024-02-26 07:59] LABS: Basophils # (auto) 0 10 ^3/uL (0-0.2); Eosinophils # (auto) 0.3 10 ^3/uL (0-0.8); Eosinophils % (auto) 2.2 % (0.0-7.0); Hematocrit 33.2 % (36.0-46.0); Hemoglobin 11.2 g/dL (12.2-16.2); Lymphocytes # (auto) 0.8 10 ^3/uL (0.4-5.4); Lymphocytes % (auto) 5.8 % (10.0-50.0); Mean Corpuscular Hemoglobin 32.3 pg (28.0-32.0); Mean Corpuscular Hgb Conc. 33.6 g/dL (32.0-36.0); Mean Corpuscular Volume 96.1 fL (80.0-100.0); Monocytes # (auto) 1.2 10 ^3/uL (0-1.3); Monocytes % (auto) 8.6 % (0.0-12.0); Neutrophils # (auto) 11.4 10 ^3/uL (1.6-8.6); Neutrophils % (auto) 83.4 % (37.0-80.0); Nucleated Red Blood Cells % 0.1 %; Platelet Count (auto) 302 10^3/uL (140-450); Red Blood Cells 3.45 10^6/uL (4.0-5.20); Red Cell Distribution Width 13.8 % (11.8-14.3); White Blood Cell 13.7 10^3/uL (4.4-10.8)
[2024-02-26 08:17] LABS: Chloride 104 mmol/L (98-107); Potassium 3.9 mmol/L (3.5-5.1); Sodium 138 mmol/L (136-145)
[2024-02-26 08:18] LABS: Anion Gap 10 (5-15); Carbon Dioxide 24 mmol/L (20-30)
[2024-02-26 08:19] LABS: Calcium 9.1 mg/dL (8.7-10.4)
[2024-02-26 08:24] LABS: BUN/Creatinine Ratio 45.9 (10.0-20.0); Glucose 103 mg/dL (74-106)
[2024-02-26 08:32] LABS: Blood Urea Nitrogen 90 mg/dL (9-23)
[2024-02-26] MEDS: amLODIPine BESYLATE 5 MG TAB PO SCH (09:53)
[2024-02-26] MEDS: amLODIPine BESYLATE 5 MG TAB PO ONE (11:20)
[2024-02-26] MEDS ORDERED: INSLANTI SC (11:36)
[2024-02-26] MEDS ORDERED: AML5T PO (11:36)
[2024-02-26] MEDS ORDERED: APIX2.5T PO (11:36)
[2024-02-26] MEDS ORDERED: MET25T PO (11:36)
== END 2024-02-26 17:25 | DRG 291 ==
LOC: EDBD 05:08 → ER 05:08 → TELE 11:49 → TELE-WESTW 18:20 → WEST WING 02-25 23:01
PROVIDERS: ADMIT Internal Medicine; ATTEND Emergency Medicine
PROC: 5A09357 Assistance with Respiratory Ventilation, Less than 24 Consecutive Hours, Continuous Positive Airway Pressure (ICD-10-PCS; principal; 2024-02-23)
DX: I11.0 Hypertensive heart disease with heart failure (principal); I50.33 Acute on chronic diastolic (congestive) heart failure; J96.21 Acute and chronic respiratory failure with hypoxia; N17.0 Acute kidney failure with tubular necrosis; J44.1 Chronic obstructive pulmonary disease with (acute) exacerbation; N39.0 Urinary tract infection, site not specified; E11.65 Type 2 diabetes mellitus with hyperglycemia; E78.5 Hyperlipidemia, unspecified; I25.10 Atherosclerotic heart disease of native coronary artery without angina pectoris; Z20.822 Contact with and (suspected) exposure to COVID-19; M10.9 Gout, unspecified; I25.2 Old myocardial infarction; Z90.49 Acquired absence of other specified parts of digestive tract; Z99.81 Dependence on supplemental oxygen; Z88.0 Allergy status to penicillin; Z88.5 Allergy status to narcotic agent; Z79.01 Long term (current) use of anticoagulants; Z95.5 Presence of coronary angioplasty implant and graft
CPT/HCPCS: 36415; 36600; 71045; 76775; 80048; 80053; 81001; 82570; 82805; 82962; 83735; 83880; 84100; 84156; 84300; 84484; 85025; 85610; 85730; 86803; 87081; 87340; 87426; 87804; 93306; 94640; 94660; 97163; 99291; G0378; J1815; J1956; J3490